=== PATIENT | female | born 1975 | race American Indian/Alaskan Native ===

== ENCOUNTER 2018-07-23 21:01 | Inpatient (IN) | payer OTHER ==
[2018-07-23 21:04] VITALS: BMI 29.0
[2018-07-23 21:15] LABS: BASO # 0.1 K/uL (0.0-0.2); BASO % 0.8 % (0.0-2.0); EOS # 0.1 K/uL (0.0-0.7); HEMOGLOBIN 12.4 g/dL (11.0-16.0); LYMPH # 3.8 K/uL (1.0-4.3); LYMPH % 39.7 % (20.0-40.0); MEAN CELL VOLUME 76.8 fL (81.0-99.0); MEAN CORPUSCULAR HEMOGLOBIN 24.8 pg (27.0-31.0); MEAN CORPUSCULAR HGB CONC 32.3 g/dL (33.0-37.0); MONO # 1.2 K/uL (0.0-0.8); MONO % 12.6 % (0.0-10.0); NEUT # 4.3 K/uL (1.8-7.0); NEUT % 45.9 % (50.0-75.0); NRBC % 0.1 % (0.0-2.0); RED CELL DISTRIBUTION WIDTH 15.6 % (11.5-14.5); WHITE BLOOD COUNT 9.5 K/uL (4.8-10.8)
[2018-07-23 21:21] LABS: INR 1.1; PROTHROMBIN TIME 11.8 SECONDS (9.7-12.2)
[2018-07-23] MEDS ORDERED: levETIRAcetam 1,000 MG in Sodium Chloride 0.9% 100 ML IVPB STA (21:24)
[2018-07-23 21:30] LABS: ALB/GLOB RATIO 1.2 (1.0-2.1); ALBUMIN 4.1 g/dL (3.5-5.0); ALT/SGPT 28 U/L (9-52); AST/SGOT 19 U/L (14-36); BLOOD UREA NITROGEN 5 mg/dL (7-17); CALCIUM 9.7 mg/dl (8.6-10.4); GFR NON-AFRICAN AMERICAN > 60; HDL CHOLESTEROL 28 mg/dL (30-70); LIPASE 150 U/L (23-300)
[2018-07-23] MEDS ORDERED: Dexamethasone 4 mg/1 ml IVP SCH (21:30)
[2018-07-23] MEDS ORDERED: levETIRAcetam 500 MG in Sodium Chloride 0.9% 100 ML IVPB SCH (21:30)
[2018-07-23] MEDS ORDERED: Dexamethasone 4 mg/1 ml ONE (21:35)
[2018-07-23 21:40] LABS: LDL CHOLESTEROL 143 mg/dL (0-129)
[2018-07-23 22:06] LABS: HCG,QUALITATIVE URINE NEGATIVE (NEGATIVE)
[2018-07-23 22:07] LABS: BARBITURATES, UR NEGATIVE (NEGATIVE); BENZODIAZEPINES, UR NEGATIVE (NEGATIVE); OPIATES, UR NEGATIVE (NEGATIVE); PHENCYCLIDINE, UR NEGATIVE (NEGATIVE)
--- NOTE | 2018-07-23 22:16 | CP.PCM.CON ---
History of Present Illness - History of Present Illness History of Present Illness: 42yo F. No PMHx. Patient was taking hormonal therapy for egg retrieval for the past year, but stopped 3 months agol. p/w one and half weeks of headache, which has progressed to vomiting starting today. Came to ED and on head CT 2cm right cerebellar bleed noted. Review of Systems - Review of Systems All systems: reviewed and no additional remarkable complaints except - Constitutional Constitutional: Headache - Gastrointestinal Gastrointestinal: Vomiting Past Patient History - Past Medical History & Family History Pertinent Family History: Mother has HTN. - Past Social History Smoking Status: Never Smoked - PSYCHIATRIC Hx Substance Use: No Meds Allergies/Adverse Reactions: Allergies Allergy/AdvReac Type Severity Reaction Status Date / Time No Known Allergies Allergy Unverified 07/23/18 21:03 - Medications Medications: Current Medications Dexamethasone (Decadron Inj) 4 mg IVP Q6H SANYA Last Admin: 07/23/18 21:22 Dose: 4 mg Physical Exam - Constitutional Appears: Well - Head Exam Head Exam: ATRAUMATIC, NORMAL INSPECTION, NORMOCEPHALIC - Eye Exam Eye Exam: EOMI, Normal appearance, PERRL Pupil Exam: NORMAL ACCOMODATION, PERRL - ENT Exam ENT Exam: Mucous Membranes Moist, Normal Exam - Neck Exam Neck exam: Positive for: Normal Inspection - Respiratory Exam Respiratory Exam: Clear to Auscultation Bilateral, NORMAL BREATHING PATTERN - Cardiovascular Exam Cardiovascular Exam: REGULAR RHYTHM - GI/Abdominal Exam GI & Abdominal Exam: Normal Bowel Sounds, Soft. absent: Tenderness - Extremities Exam Extremities exam: Positive for: normal inspection - Neurological Exam Neurological exam: Alert, CN II-XII Intact, Oriented x3 - Expanded Neurological Exam Expanded Neurological exam: Ataxia Patient oriented to: person, place, time Ataxia: Yes Cerebellar Function: Finger to Nose: Abnormal Right (unsteady and patient had difficulty) Sensory exam: Lower Extremity 2 Point Discrimination: Normal, Upper Extremity 2 Point Discrimination: Normal Neuro motor strength exam: Left Upper Extremity: 5, Right Upper Extremity: 5, Left Lower Extremity: 5, Right Lower Extremity: 5 Results - Vital Signs Recent Vital Signs: Last Vital Signs Temp 98.3 F 07/23/18 21:05 Pulse 84 07/23/18 22:00 Resp 16 07/23/18 22:00 BP 125/66 07/23/18 22:00 Pulse Ox 98 07/23/18 22:00 - Labs Result Diagrams: 07/23/18 21:12 07/23/18 21:12 Labs: Laboratory Results - last 24 hr 07/23/18 07/23/18 07/23/18 21:12 21:12 21:12 WBC 9.5 RBC 5.00 Hgb 12.4 Hct 38.4 MCV 76.8 L MCH 24.8 L MCHC 32.3 L RDW 15.6 H Plt Count 285 MPV 8.0 Neut % (Auto) 45.9 L Lymph % (Auto) 39.7 [place] % (Auto) 12.6 H Eos % (Auto) 1.0 Baso % (Auto) 0.8 Neut # (Auto) 4.3 Lymph # (Auto) 3.8 [place] # (Auto) 1.2 H Eos # (Auto) 0.1 Baso # (Auto) 0.1 PT 11.8 INR 1.1 APTT 24 Sodium 143 Potassium 3.0 L Chloride 108 H Carbon Dioxide 18 L Anion Gap 20 BUN 5 L Creatinine 0.9 Est GFR ( Amer) > 60 Est GFR (Non-Af Amer) > 60 Random Glucose 127 H Hemoglobin A1c Calcium 9.7 Total Bilirubin 0.3 AST 19 ALT 28 Alkaline Phosphatase 57 Troponin I < 0.0120 Total Protein 7.5 Albumin 4.1 Globulin 3.5 Albumin/Globulin Ratio 1.2 Triglycerides 137 Cholesterol 196 LDL Cholesterol Direct 143 H HDL Cholesterol 28 L Lipase 150 07/23/18 21:12 WBC RBC Hgb Hct MCV MCH MCHC RDW Plt Count MPV Neut % (Auto) Lymph % (Auto) [place] % (Auto) Eos % (Auto) Baso % (Auto) Neut # (Auto) Lymph # (Auto) [place] # (Auto) Eos # (Auto) Baso # (Auto) PT INR APTT Sodium Potassium Chloride Carbon Dioxide Anion Gap BUN Creatinine Est GFR ( Amer) Est GFR (Non-Af Amer) Random Glucose Hemoglobin A1c 5.7 Calcium Total Bilirubin AST ALT Alkaline Phosphatase Troponin I Total Protein Albumin Globulin Albumin/Globulin Ratio Triglycerides Cholesterol LDL Cholesterol Direct HDL Cholesterol Lipase Assessment & Plan (1) Intracranial hemorrhage Assessment and Plan: 42yp F. No sig PMHx, p/w right cerebellar ICH. Neuro: right cerebellar ICH, repeat head CT in am. Eventually will need MRI to assess for underlying AVM/aneurysm/mass, once blood resorbs. Neurosurgery consulted - Dr. Delgadillo. Pulm: no acute issues, breathing spontaneously on room air. CV: hemodynamically stable, will monitor for HTN, maintain SBP<140. arrythmia on tele will obtain EKG, possibly hypokalemia related. Hem: ICH, no coagulopathy Renal: hypokalemia from vomiting, will supplement. Will monitor urine output. maintenance fluid 1/2NS+75SB+40KCL@75 Endo: no acute issues. hormone therapy stopped 3 months ago. GI: NPO, s/s eval in morning. ID: no acute issues DVT proph - SCD's, no a/c with current bleed GI proph - protonix IV Code status - full code Critical Care Time spent 35 minutes The documented time is cumulative and includes review of patient data/exams/labs/chart review and examination of the patient on rounds and throughout the day; time is exclusive of any procedures or teaching time. Status: Acute
--- NOTE | 2018-07-23 22:20 | C.PDOC ---
History Of Present Illness 42 y/o F c no PMHx p/w headache x 1.5 weeks. states patient has been having headaches for about 1 and a half weeks. States patient typically does not have headaches. Patient has been going to work, coming home, sleeping most of the time, and only waking to go back to work. Today, patient vomiting in bed and drowsy, causing to bring patient to ED. Made appointment with neurology but appointment has not occurred yet. Denies fever, nuchal ridigity, trauma. Full HPI/ROS unobtainable due to patient's clinical condition and acuity of case. Time Seen by Provider: 07/23/18 21:03 Chief Complaint (Nursing): Altered Mental Status Past Medical History Vital Signs: Last Vital Signs Temp 98.3 F 07/23/18 21:05 Pulse 84 07/23/18 22:00 Resp 16 07/23/18 22:00 BP 125/66 07/23/18 22:00 Pulse Ox 98 07/23/18 22:00 Family History: States: No Known Family Hx - Social History Hx Alcohol Use: No Hx Substance Use: No - Immunization History Hx Tetanus Toxoid Vaccination: No Hx Influenza Vaccination: No Hx Pneumococcal Vaccination: No Review Of Systems Review Of Systems: ROS cannot be obtained secondary to pt's inabilty to answer questions. Physical Exam - Physical Exam Additional Physical Exam Comments: Gen: Drowsy, speaking full sentences. Head: NC/AT Eyes: PERRL. EOMI. ENT: MMM Neck: Supple Chest: No tenderness CV: Borderline tachycardia Resp: CTA b/l Abd: Soft, NT Back: No CVA tenderness Extremities: No edema Skin: No rash, diaphoretic Neuro: Awake but drowsy. Moves all extremities. No facial droop. Sensation to light touch intact bilaterally. ED Course And Treatment - Laboratory Results Result Diagrams: 07/23/18 21:12 07/23/18 21:12 ECG: Interpreted By Me, Viewed By Me ECG Rhythm: Atrial Fibrillation ECG Interpretation: Normal Interpretation Of ECG: No ST elevation Rate From EC O2 Sat by Pulse Oximetry: 98 Critical Care Time - Critical Care Note Total Time (in mins): 60 Comments: Patient required my immediate attention upon arrival due to life threatening co ndition, frequent reassessments and mutliple specialty consultations. Documented critical care: time excludes all time spent performing seperately billable procedures. NIHSS Stroke Scale - Date/Time Evaluation Performed Date Performed: 07/23/18 Time Performed: 21:00 When Was NIHSS Performed: Baseline - How Severe is the Stroke Level of Consciousness: 1=Drowsy LOC to Questions: 0=Both comments correct LOC to commands: 0=Obeys both correctly Best Gaze: 0=Normal Visual: 0=No visual loss Facial: 0=Normal Motor Arm - Left: 0=No drift Motor Arm - Right: 0=No drift Motor Leg - Left: 0=No drift Motor Leg - Right: 0=No drift Limb Ataxia: 0=Absent Sensory: 0=Normal Best Language: 0=No aphasia Dysarthia: 0=Normal articulation Extinction & Inattention (Neglect): 0=Normal, no object Score: 1 Severity Of Stroke: 1-4 = Minor Stroke Medical Decision Making Medical Decision Making: CODE STROKE activated. CT IMPRESSION: Subacute right cerebellar hemorrhage measuring approximately 2cm. Focal bleed is also noted in the cerebellar vermis. There is an apparent extension into posterior subdural space and 4th ventricle. Keppra 1000mg administered and fentanyl for pain. Blood pressure 120/80-85. Head of bed [address] Delgadillo who viewed CT imaging. Recommends decadron 4mg Q6 and repeat CT at 7am and states will obtain MRI with contrast. Dr. Erickson was CODE STROKE consult. Dr. Harding accepts patient to his service. Dr. Santos accepts patient to ICU. Patient found to be in rate controlled afib, anticoagulation contraindicated at this time. Disposition - Disposition Disposition: HOSPITALIZED Disposition Time: 21:37 Condition: CRITICAL - POA Present On Arrival: None Core Measure Indicators: Code Stroke - Clinical Impression Clinical Impression: Intracranial hemorrhage
[2018-07-23 22:30] LABS: URINE BILIRUBIN SMALL (NEGATIVE); URINE BLOOD TRACE (NEGATIVE); URINE CLARITY Hazy (Clear); URINE COLOR AMBER (YELLOW); URINE GLUCOSE (UA) NEGATIVE (Normal)
[2018-07-23 22:31] LABS: SQUAMOUS EPITHIAL 4 /hpf (0-5); URINE BACTERIA OCC (<OCC); URINE LEUKOCYTE ESTERASE NEGATIVE Leu/uL (Negative); URINE PROTEIN 100 mg/dL (NEGATIVE); URINE UROBILINOGEN 0.2 mg/dL (0.2-1.0)
--- NOTE | 2018-07-23 22:40 | CP.PCM.HP ---
Past Patient History - Past Social History Smoking Status: Never Smoked - PSYCHIATRIC Hx Substance Use: No Meds Allergies/Adverse Reactions: Allergies Allergy/AdvReac Type Severity Reaction Status Date / Time No Known Allergies Allergy Unverified 07/23/18 21:03 Physical Exam - Constitutional Appears: Well - Head Exam Head Exam: ATRAUMATIC, NORMAL INSPECTION, NORMOCEPHALIC - Eye Exam Eye Exam: EOMI, Normal appearance, PERRL Pupil Exam: NORMAL ACCOMODATION, PERRL - ENT Exam ENT Exam: Mucous Membranes Moist, Normal Exam - Neck Exam Neck exam: Positive for: Normal Inspection - Respiratory Exam Respiratory Exam: Decreased Breath Sounds - Cardiovascular Exam Cardiovascular Exam: REGULAR RHYTHM, +S1, +S2 - GI/Abdominal Exam GI & Abdominal Exam: Diminished Bowel Sounds, Soft - Rectal Exam Rectal Exam: Deferred Results - Vital Signs Recent Vital Signs: Last Vital Signs Temp 98.3 F 07/23/18 22:21 Pulse 78 07/23/18 22:21 Resp 18 07/23/18 22:21 BP 112/69 07/23/18 22:21 Pulse Ox 98 07/23/18 22:37 - Labs Result Diagrams: 07/23/18 21:12 07/23/18 21:12 Labs: Laboratory Results - last 24 hr 07/23/18 07/23/18 07/23/18 21:12 21:12 21:12 WBC 9.5 RBC 5.00 Hgb 12.4 Hct 38.4 MCV 76.8 L MCH 24.8 L MCHC 32.3 L RDW 15.6 H Plt Count 285 MPV 8.0 Neut % (Auto) 45.9 L Lymph % (Auto) 39.7 [place] % (Auto) 12.6 H Eos % (Auto) 1.0 Baso % (Auto) 0.8 Neut # (Auto) 4.3 Lymph # (Auto) 3.8 [place] # (Auto) 1.2 H Eos # (Auto) 0.1 Baso # (Auto) 0.1 PT 11.8 INR 1.1 APTT 24 Sodium 143 Potassium 3.0 L Chloride 108 H Carbon Dioxide 18 L Anion Gap 20 BUN 5 L Creatinine 0.9 Est GFR ( Amer) > 60 Est GFR (Non-Af Amer) > 60 Random Glucose 127 H Hemoglobin A1c Calcium 9.7 Total Bilirubin 0.3 AST 19 ALT 28 Alkaline Phosphatase 57 Troponin I < 0.0120 Total Protein 7.5 Albumin 4.1 Globulin 3.5 Albumin/Globulin Ratio 1.2 Triglycerides 137 Cholesterol 196 LDL Cholesterol Direct 143 H HDL Cholesterol 28 L Lipase 150 Urine Color Urine Clarity Urine pH Ur Specific [place] Urine Protein Urine Glucose (UA) Urine Ketones Urine Blood Urine Nitrate Urine Bilirubin Urine Urobilinogen Ur Leukocyte Esterase Urine RBC (Auto) Ur Squamous Epith Cells Urine Bacteria Urine HCG, Qual Urine Opiates Screen Urine Methadone Screen Ur Barbiturates Screen Ur Phencyclidine Scrn Ur Amphetamines Screen U Benzodiazepines Scrn U Oth Cocaine Metabols U Cannabinoids Screen Blood Type Antibody Screen 07/23/18 07/23/18 07/23/18 21:12 21:32 21:39 WBC RBC Hgb Hct MCV MCH MCHC RDW Plt Count MPV Neut % (Auto) Lymph % (Auto) [place] % (Auto) Eos % (Auto) Baso % (Auto) Neut # (Auto) Lymph # (Auto) [place] # (Auto) Eos # (Auto) Baso # (Auto) PT INR APTT Sodium Potassium Chloride Carbon Dioxide Anion Gap BUN Creatinine Est GFR ( Amer) Est GFR (Non-Af Amer) Random Glucose Hemoglobin A1c 5.7 Calcium Total Bilirubin AST ALT Alkaline Phosphatase Troponin I Total Protein Albumin Globulin Albumin/Globulin Ratio Triglycerides Cholesterol LDL Cholesterol Direct HDL Cholesterol Lipase Urine Color [place] Urine Clarity Hazy Urine pH 6.0 Ur Specific [place] 1.030 Urine Protein 100 Urine Glucose (UA) Negative Urine Ketones Negative Urine Blood Trace Urine Nitrate Negative Urine Bilirubin Small Urine Urobilinogen 0.2 Ur Leukocyte Esterase Negative Urine RBC (Auto) 5 H Ur Squamous Epith Cells 4 Urine Bacteria Occ H Urine HCG, Qual Negative Urine Opiates Screen Urine Methadone Screen Ur Barbiturates Screen Ur Phencyclidine Scrn Ur Amphetamines Screen U Benzodiazepines Scrn U Oth Cocaine Metabols U Cannabinoids Screen Blood Type A POSITIVE Antibody Screen Negative 07/23/18 21:39 WBC RBC Hgb Hct MCV MCH MCHC RDW Plt Count MPV Neut % (Auto) Lymph % (Auto) [place] % (Auto) Eos % (Auto) Baso % (Auto) Neut # (Auto) Lymph # (Auto) [place] # (Auto) Eos # (Auto) Baso # (Auto) PT INR APTT Sodium Potassium Chloride Carbon Dioxide Anion Gap BUN Creatinine Est GFR ( Amer) Est GFR (Non-Af Amer) Random Glucose Hemoglobin A1c Calcium Total Bilirubin AST ALT Alkaline Phosphatase Troponin I Total Protein Albumin Globulin Albumin/Globulin Ratio Triglycerides Cholesterol LDL Cholesterol Direct HDL Cholesterol Lipase Urine Color Urine Clarity Urine pH Ur Specific [place] Urine Protein Urine Glucose (UA) Urine Ketones Urine Blood Urine Nitrate Urine Bilirubin Urine Urobilinogen Ur Leukocyte Esterase Urine RBC (Auto) Ur Squamous Epith Cells Urine Bacteria Urine HCG, Qual Urine Opiates Screen Negative Urine Methadone Screen Negative Ur Barbiturates Screen Negative Ur Phencyclidine Scrn Negative Ur Amphetamines Screen Negative U Benzodiazepines Scrn Negative U Oth Cocaine Metabols Negative U Cannabinoids Screen Negative Blood Type Antibody Screen
[2018-07-24 06:20] LABS: HEMOGLOBIN 12.4 g/dL (11.0-16.0); MEAN CELL VOLUME 77.3 fL (81.0-99.0); MEAN CORPUSCULAR HEMOGLOBIN 25.2 pg (27.0-31.0); MEAN CORPUSCULAR HGB CONC 32.6 g/dL (33.0-37.0); MEAN PLATELET VOLUME 8.4 fL (7.2-11.7); RBC 4.91 Mil/uL (3.80-5.20); RED CELL DISTRIBUTION WIDTH 16.4 % (11.5-14.5); WHITE BLOOD COUNT 11.7 K/uL (4.8-10.8)
[2018-07-24 06:27] LABS: HDL CHOLESTEROL 34 mg/dL (30-70)
[2018-07-24 06:38] LABS: LDL CHOLESTEROL 162 mg/dL (0-129)
[2018-07-24 06:42] LABS: B-TYPE NATRIURETIC PEPTIDE 264 pg/mL (0-450); CK-MB 1.54 ng/mL (0.0-3.38)
[2018-07-24 07:00] LABS: T3 1.75 nmol/L (1.49-2.60)
[2018-07-24 07:53] LABS: T4 11.8 ug/dL (5.5-11.0)
--- NOTE | 2018-07-24 08:57 | RAD ---
Date of service: 07/23/2018 HISTORY: Code Stroke COMPARISON: No prior. FINDINGS: LUNGS: No consolidation. Visualization of the left lung base is limited-probably technical PLEURA: No significant pleural effusion identified, no pneumothorax apparent. CARDIOVASCULAR: Probable mild cardiomegaly-even allowing for projection. Mild pulmonary venous congestion-possible. OSSEOUS STRUCTURES: No significant abnormalities. VISUALIZED UPPER ABDOMEN: Normal. OTHER FINDINGS: None. IMPRESSION: Probable mild cardiomegaly-even allowing for projection. Mild pulmonary venous congestion-possible.
[2018-07-24 09:07] LABS: ALB/GLOB RATIO 1.1 (1.0-2.1); ALBUMIN 4.1 g/dL (3.5-5.0); ALT/SGPT 31 U/L (9-52); AST/SGOT 31 U/L (14-36); BLOOD UREA NITROGEN 6 mg/dL (7-17); CALCIUM 9.4 mg/dl (8.6-10.4); GFR NON-AFRICAN AMERICAN > 60
--- NOTE | 2018-07-24 10:19 | CP.PCM.CON ---
History of Present Illness - History of Present Illness History of Present Illness: PGY1 Neurology Consult Note for Dr. Erickson This is a 42-year-old patient with no past medical history who was consulted by Dr. Santos for right cerebellar ICH. Of note, patient came in with a complaint of new-onset headache that began 1 week ago. Patient's , who was at bedside at the time, stated that the patient was complaining of nagging headache that worsened over the past 2 days with associated nausea, vomiting, and drowsiness. Patient's stated that he was compelled to bring the patient into the ED when he realized that the patient was asking him the same questions over and over again, and that she was not responding at her "normal pace." Patient reports history of hormonal therapy for egg retrieval, which lasted about 1 year. Patient was off therapy for 2 months, and then restarted on OTC control for the past 2 months. While in the ED, CT of head without contrast was obtained and revealed mild intraparenchymal hemorrhage is identified at the right cerebral hemisphere, the vermis and a minimal portion of the medial left cerebellar hemisphere as well, questionable venous sinus thrombosis at the posterior inferior superior sagittal sinus segment, internal cerebral veins, vein of cheng and possibly the straight sinus. Patient was admitted to ICU for close monitoring. Today, the patient reports similar headache as the day prior. Patient localizes her pain to posterior head. Patient remains alert and oriented to person, place, and time, however she is still drowsy. GCS =15. Review of Systems - Review of Systems All systems: reviewed and no additional remarkable complaints except - Constitutional Constitutional: As Per HPI - EENT Eyes: As Per HPI - Cardiovascular Cardiovascular: As Per HPI - Reproductive: Female Reproductive:Female: As Per HPI - Menstruation Menstruation: As Per HPI - Musculoskeletal Musculoskeletal: As Per HPI - Neurological Neurological: As Per HPI Past Patient History - Past Medical History & Family History Past Medical History?: No - Past Social History Smoking Status: Never Smoked - MUSCULOSKELETAL/RHEUMATOLOGICAL Hx Falls: No - PSYCHIATRIC Hx Substance Use: No - ANESTHESIA Hx Anesthesia: No Hx Anesthesia Reactions: No Hx Malignant Hyperthermia: No Has any member of the family had a problem w/ anesthesia?: No Meds Allergies/Adverse Reactions: Allergies Allergy/AdvReac Type Severity Reaction Status Date / Time No Known Allergies Allergy Unverified 07/23/18 21:03 - Medications Medications: Current Medications Sodium Bicarbonate 75 meq/Potassium Chloride 40 meq/Sodium Chloride 1,095 mls @ 75 mls/hr IV .[id number] [facility] Last Admin: 07/23/18 23:39 Dose: 75 mls/hr Pantoprazole Sodium (Protonix Inj) 40 mg IVP DAILY [facility] Sodium Chloride (Hypertonic Saline 3%) 250 ml IV ONCE ONE Stop: 07/24/18 10:06 Physical Exam - Constitutional Appears: Non-toxic, No Acute Distress - Head Exam Head Exam: ATRAUMATIC, NORMAL INSPECTION, NORMOCEPHALIC - Eye Exam Eye Exam: EOMI - Extremities Exam Additional comments: Left lower extremity is +1 nonpitting edema Left upper extremity is +1 nonpitting edema Lower extremities are warm to touch bilaterally. No bruising, no tenderness to palpation. Pedal pulses palpable and equal. - Neurological Exam Additional comments: pupils are dilated bilaterally. Reactive to light bilaterally. - Expanded Neurological Exam Expanded Patient oriented to: person, place, time Speech: Fluid Speech Cranial nerves: EOM's Intact: Normal, Facial Palsey w/Forehead Movement: Normal, Facial Palsey w/o Forehead Movement: Normal, Facial Sensation: Normal, Gag Reflex: Normal, Nystagmus: Normal, Tongue Deviation: Normal Cerebellar Function: Finger to Nose: Normal Upper motor neuron: Pronator Drift: Normal (Patient felt weak > 8 seconds) Neuro motor strength exam: Left Upper Extremity: 5, Right Upper Extremity: 5, Left Lower Extremity: 5, Right Lower Extremity: 5 DTR: Patellar Left: 2+ (Left more brisk than right. ), Patellar Right: 2+ - Psychiatric Exam Psychiatric exam: Normal Affect, Normal Mood Results - Vital Signs Recent Vital Signs: Last Vital Signs Temp 98.4 F 07/24/18 08:00 Pulse 81 07/24/18 09:20 Resp 28 H 07/24/18 09:20 BP 111/77 07/24/18 08:40 Pulse Ox 94 L 07/24/18 09:20 - Labs Result Diagrams: 07/24/18 13:29 07/24/18 13:29 Labs: Laboratory Results - last 24 hr 07/23/18 07/23/18 07/23/18 21:12 21:12 21:12 WBC 9.5 RBC 5.00 Hgb 12.4 Hct 38.4 MCV 76.8 L MCH 24.8 L MCHC 32.3 L RDW 15.6 H Plt Count 285 MPV 8.0 Neut % (Auto) 45.9 L Lymph % (Auto) 39.7 [place] % (Auto) 12.6 H Eos % (Auto) 1.0 Baso % (Auto) 0.8 Neut # (Auto) 4.3 Lymph # (Auto) 3.8 [place] # (Auto) 1.2 H Eos # (Auto) 0.1 Baso # (Auto) 0.1 ESR PT 11.8 INR 1.1 APTT 24 Sodium 143 Potassium 3.0 L Chloride 108 H Carbon Dioxide 18 L Anion Gap 20 BUN 5 L Creatinine 0.9 Est GFR ( Amer) > 60 Est GFR (Non-Af Amer) > 60 Random Glucose 127 H Hemoglobin A1c Calcium 9.7 Phosphorus Magnesium Total Bilirubin 0.3 AST 19 ALT 28 Alkaline Phosphatase 57 Total Creatine Kinase CK-MB (Mass) Troponin I < 0.0120 C-React Prot High Sens NT-Pro-B Natriuret Pep Total Protein 7.5 Albumin 4.1 Globulin 3.5 Albumin/Globulin Ratio 1.2 Triglycerides 137 Cholesterol 196 LDL Cholesterol Direct 143 H HDL Cholesterol 28 L Lipase 150 Vitamin B12 Thyroxine (T4) Total T3 TSH 3rd Generation Urine Color Urine Clarity Urine pH Ur Specific [place] Urine Protein Urine Glucose (UA) Urine Ketones Urine Blood Urine Nitrate Urine Bilirubin Urine Urobilinogen Ur Leukocyte Esterase Urine RBC (Auto) Ur Squamous Epith Cells Urine Bacteria Urine HCG, Qual Urine Opiates Screen Urine Methadone Screen Ur Barbiturates Screen Ur Phencyclidine Scrn Ur Amphetamines Screen U Benzodiazepines Scrn U Oth Cocaine Metabols U Cannabinoids Screen Blood Type Antibody Screen 07/23/18 07/23/18 07/23/18 21:12 21:32 21:39 WBC RBC Hgb Hct MCV MCH MCHC RDW Plt Count MPV Neut % (Auto) Lymph % (Auto) [place] % (Auto) Eos % (Auto) Baso % (Auto) Neut # (Auto) Lymph # (Auto) [place] # (Auto) Eos # (Auto) Baso # (Auto) ESR PT INR APTT Sodium Potassium Chloride Carbon Dioxide Anion Gap BUN Creatinine Est GFR ( Amer) Est GFR (Non-Af Amer) Random Glucose Hemoglobin A1c 5.7 Calcium Phosphorus Magnesium Total Bilirubin AST ALT Alkaline Phosphatase Total Creatine Kinase CK-MB (Mass) Troponin I C-React Prot High Sens NT-Pro-B Natriuret Pep Total Protein Albumin Globulin Albumin/Globulin Ratio Triglycerides Cholesterol LDL Cholesterol Direct HDL Cholesterol Lipase Vitamin B12 Thyroxine (T4) Total T3 TSH 3rd Generation Urine Color [place] Urine Clarity Hazy Urine pH 6.0 Ur Specific [place] 1.030 Urine Protein 100 Urine Glucose (UA) Negative Urine Ketones Negative Urine Blood Trace Urine Nitrate Negative Urine Bilirubin Small Urine Urobilinogen 0.2 Ur Leukocyte Esterase Negative Urine RBC (Auto) 5 H Ur Squamous Epith Cells 4 Urine Bacteria Occ H Urine HCG, Qual Negative Urine Opiates Screen Urine Methadone Screen Ur Barbiturates Screen Ur Phencyclidine Scrn Ur Amphetamines Screen U Benzodiazepines Scrn U Oth Cocaine Metabols U Cannabinoids Screen Blood Type A POSITIVE Antibody Screen Negative 07/23/18 07/24/18 07/24/18 21:39 06:11 06:11 WBC 11.7 H RBC 4.91 Hgb 12.4 Hct 37.9 MCV 77.3 L MCH 25.2 L MCHC 32.6 L RDW 16.4 H Plt Count 216 MPV 8.4 Neut % (Auto) Lymph % (Auto) [place] % (Auto) Eos % (Auto) Baso % (Auto) Neut # (Auto) Lymph # (Auto) [place] # (Auto) Eos # (Auto) Baso # (Auto) ESR 23 H PT INR APTT Sodium 142 Potassium 5.8 H Chloride 108 H Carbon Dioxide 16 L Anion Gap 23 H BUN 6 L Creatinine 0.8 Est GFR ( Amer) > 60 Est GFR (Non-Af Amer) > 60 Random Glucose 144 H Hemoglobin A1c Calcium 9.4 Phosphorus 2.8 Magnesium 1.7 Total Bilirubin 0.5 AST 31 ALT 31 Alkaline Phosphatase 58 Total Creatine Kinase 213 H CK-MB (Mass) 1.54 Troponin I < 0.0120 C-React Prot High Sens NT-Pro-B Natriuret Pep 264 Total Protein 7.7 Albumin 4.1 Globulin 3.6 Albumin/Globulin Ratio 1.1 Triglycerides 55 D Cholesterol 194 LDL Cholesterol Direct 162 H HDL Cholesterol 34 Lipase Vitamin B12 537 Thyroxine (T4) 11.8 H Total T3 1.75 TSH 3rd Generation 0.41 L Urine Color Urine Clarity Urine pH Ur Specific [place] Urine Protein Urine Glucose (UA) Urine Ketones Urine Blood Urine Nitrate Urine Bilirubin Urine Urobilinogen Ur Leukocyte Esterase Urine RBC (Auto) Ur Squamous Epith Cells Urine Bacteria Urine HCG, Qual Urine Opiates Screen Negative Urine Methadone Screen Negative Ur Barbiturates Screen Negative Ur Phencyclidine Scrn Negative Ur Amphetamines Screen Negative U Benzodiazepines Scrn Negative U Oth Cocaine Metabols Negative U Cannabinoids Screen Negative Blood Type Antibody Screen 07/24/18 06:11 WBC RBC Hgb Hct MCV MCH MCHC RDW Plt Count MPV Neut % (Auto) Lymph % (Auto) [place] % (Auto) Eos % (Auto) Baso % (Auto) Neut # (Auto) Lymph # (Auto) [place] # (Auto) Eos # (Auto) Baso # (Auto) ESR PT INR APTT Sodium Potassium Chloride Carbon Dioxide Anion Gap BUN Creatinine Est GFR ( Amer) Est GFR (Non-Af Amer) Random Glucose Hemoglobin A1c Calcium Phosphorus Magnesium Total Bilirubin AST ALT Alkaline Phosphatase Total Creatine Kinase CK-MB (Mass) Troponin I C-React Prot High Sens 5.92 H NT-Pro-B Natriuret Pep Total Protein Albumin Globulin Albumin/Globulin Ratio Triglycerides Cholesterol LDL Cholesterol Direct HDL Cholesterol Lipase Vitamin B12 Thyroxine (T4) Total T3 TSH 3rd Generation Urine Color Urine Clarity Urine pH Ur Specific [place] Urine Protein Urine Glucose (UA) Urine Ketones Urine Blood Urine Nitrate Urine Bilirubin Urine Urobilinogen Ur Leukocyte Esterase Urine RBC (Auto) Ur Squamous Epith Cells Urine Bacteria Urine HCG, Qual Urine Opiates Screen Urine Methadone Screen Ur Barbiturates Screen Ur Phencyclidine Scrn Ur Amphetamines Screen U Benzodiazepines Scrn U Oth Cocaine Metabols U Cannabinoids Screen Blood Type Antibody Screen Assessment & Plan - Assessment and Plan (Free Text) Assessment: This is a 42-year-old patient with no past medical history who was consulted by Dr. Santos for right cerebellar ICH. Of note, patient came in with a complaint of new-onset headache that began [address] of head without contrast was obtained and revealed mild intraparenchymal hemorrhage is identified at the right cerebral hemisphere, the vermis and a minimal portion of the medial left cerebellar hemisphere as well, questionable venous sinus thrombosis at the posterior inferior superior sagittal sinus segment, internal cerebral veins, vein of cheng and possibly the straight sinus. Patient was admitted to ICU for close monitoring. 1. Intracranial hemorrhage - 3% NS 250ml bolus administered - 3% NS @60cc/hour - 1L NS bolus given once - GCS =15 2. Venous Sinus Thrombosis - CTA Head official report: * Definite Venous sinus thrombosis at superior sagittal sinus segment from its mid vertex segment posteriorly at to the level of the torcular herophili, likely thrombosis of bilateral internal cerebral veins, vein of Cheng and straight sinus and possibly right transferse sinus - Repeat head CT this AM showed mild increase in cerebellar hemorrhage, mass- effect now encroaching brain stem, possible arachnoid cyst - Followup venous dopplers to r/o DVT - Neurochecks Q1H - Heparin 4320 units IVP once - Neurosurgery consulted Dr. Delgadillo was consulted Patient was hemodynamically stable. Patient subsequently transferred to [facility] tertiary medical care. All consultants on case agreed. Please do not hesitate to call back with any new developments, data updates or q uestions. Thank you for the opportunity to participate in the care of this patient. Patient seen and case discussed in detail with Dr. Georgina Batres PGY1
--- NOTE | 2018-07-24 10:25 | CT ---
Date of service: 07/24/2018 PROCEDURE: CT HEAD WITHOUT CONTRAST. HISTORY: ICH evaluation COMPARISON: Noncontrast head CT 07/23/2018. TECHNIQUE: Axial computed tomography images were obtained through the head/brain without intravenous contrast. Radiation dose: Total exam DLP = 1174.05 mGy-cm. This CT exam was performed using one or more of the following dose reduction techniques: Automated exposure control, adjustment of the mA and/or kV according to patient size, and/or use of iterative reconstruction technique. FINDINGS: HEMORRHAGE: Hemorrhage in local edema appears slightly increased at the level of the vermis posteriorly and likely the right cerebellar hemisphere as well. Fourth ventricle is diminished involving indicating significant mass effect the bilateral lateral ventricles slightly increased in size. Borderline increase in volume of the 3rd ventricle. Pattern reflects early hydrocephalus. Basilar cisterns are diminished in volume indicating cerebellar encroachment at the brainstem. There are no suspicious cerebral findings intrinsically identified at this time. However, hyperdensity at the posterior segment of the superior sagittal sinus which may indicate sinus thrombosis. Further, internal cerebral veins also appears somewhat more dense than usual and may indicate thrombosis; this pattern is not excluded at the vein of Cheng and at least the proximal straight sinus. This may account for the hemorrhagic infarct at the cerebellum. Finally, the sella appears expanded by CSF lucency and measures 1.6 x 1.6 cm with no visible pituitary gland, indicating an empty sella. This may represent an arachnoid cyst given its expanded appearance. Note is made of falcine calcifications scattered infrequently along the falx. BRAIN: As above. VENTRICLES: Development of hydrocephalus is questioned as discussed above. CALVARIUM: Unremarkable. PARANASAL SINUSES: Unremarkable as visualized. No significant inflammatory changes. MASTOID AIR CELLS: Unremarkable as visualized. No inflammatory changes. OTHER FINDINGS: None. IMPRESSION: 1. Mild increase in cerebellar hemorrhage including the vermis and right cerebellar hemisphere. Mass-effect is now encroaches the brainstem with limited residual basilar cisterns remaining. No edema is appreciate specifically at the zenia or medulla at this time. Artifacts obscure lower posterior fossa. 2. No suspicious pattern for possible venous sinus thrombosis affecting the posterior segment of the superior sagittal sinus and potentially the internal cerebral veins bilaterally, vein of Cheng and straight sinus. Consider follow-up contrast head CT with delayed imaging. MR venography may be helpful depending on stage of thrombus. 3. Possible arachnoid cyst expanding the sella as discussed above. Empty sella otherwise. Findings and discussed with Dr. Delgadillo with written down and read back verification 07/24/2018 9:40 a.m..
--- NOTE | 2018-07-24 10:57 | CT ---
Date of service: 07/23/2018 PROCEDURE: CT HEAD WITHOUT CONTRAST. HISTORY: Code Stroke COMPARISON: None available. TECHNIQUE: Axial computed tomography images were obtained through the head/brain without intravenous contrast. Radiation dose: Total exam DLP = 1111.82 mGy-cm. This CT exam was performed using one or more of the following dose reduction techniques: Automated exposure control, adjustment of the mA and/or kV according to patient size, and/or use of iterative reconstruction technique. FINDINGS: HEMORRHAGE: Intraparenchymal hemorrhage is identified at the bilateral cerebral hemispheres but greater the right than left sides. Involvement of the vermis is also appreciated mildly. Limited local edema is appreciate related to central cerebellar hemorrhage. Fourth ventricle appears patent as well as the perimesencephalic and remaining basilar cisterns. No additional hemorrhage is appreciate throughout the remainder of the brain including the cerebrum which is normal in overall density. Good corticomedullary differentiation remains. Of note is questionable hyperdensity at the posterior inferior margins of the superior sagittal sinus, internal cerebral veins, vein of Cheng and potentially the straight sinus. Pattern may reflect sinus thrombosis which may explain unusual intraparenchymal hemorrhage. Infrequent fall seen calcifications are identified. No hydrocephalus identified at this time. BRAIN: Please see discussion above. VENTRICLES: Please see above. CALVARIUM: Unremarkable. PARANASAL SINUSES: Unremarkable as visualized. No significant inflammatory changes. MASTOID AIR CELLS: Unremarkable as visualized. No inflammatory changes. OTHER FINDINGS: None. IMPRESSION: 1. Mild intraparenchymal hemorrhage is identified at the right cerebral hemisphere, the vermis and a minimal portion of the medial left cerebellar hemisphere as well. Limited local edema is appreciated without effacing the 4th ventricle or the basilar cisterns at this time. Brainstem appears unremarkable in density. The remaining brain parenchyma appears normal. 2. Questionable venous sinus thrombosis at the posterior inferior superior sagittal sinus segment, internal cerebral veins, vein of Cheng and possibly the straight sinus. Consider follow-up head CT with contrast with delayed imaging. The final read and preliminary read are discordant around the possibility of sinus thrombosis. Impression 1. Was discussed with Dr. Henao with written down and read back verification by Dr. Villegas, who provided the preliminary report 07/23/2018 9:37 p.m.. I have discussed both all the findings noted above in this CT examination as well as the follow-up CT exam performed 07/24/2018 9:[address] Delgadillo subsequently. Please see separate report.
[2018-07-24] MEDS ORDERED: Sodium Chloride 3% 250 ML IV SCH (11:00)
[2018-07-24] MEDS ORDERED: Mannitol 12.5 gm/50 ml Inj IV ONE (11:00)
[2018-07-24] MEDS ORDERED: Iohexol 350mg/ml 100 ML ONE (11:07)
[2018-07-24] MEDS ORDERED: Iodixanol 320 mg/ml 150 ml Bottle IV ONE (11:17)
--- NOTE | 2018-07-24 11:36 | RAD ---
Date of service: 07/24/2018 HISTORY: s/p picc line placement COMPARISON: 07/23/2018 FINDINGS: LUNGS: Right PICC line retracts upon itself within the right SVC with the distal tip projecting in a cranial fashion. Re adjustment is recommended. Moderate venous congestion. Patchy left basilar airspace opacity. PLEURA: No significant pleural effusion identified, no pneumothorax apparent. CARDIOVASCULAR: No atherosclerotic calcification present Top normal heart size. OSSEOUS STRUCTURES: No significant abnormalities. VISUALIZED UPPER ABDOMEN: Normal. OTHER FINDINGS: None. IMPRESSION: Right PICC line retracts upon itself within the right SVC with the distal tip projecting in a cranial fashion. Re adjustment is recommended.
[2018-07-24] MEDS ORDERED: Heparin25000 units/250ml 1/2NS 25,000 UNITS/250 ML BAG IV PRN (11:55)
--- NOTE | 2018-07-24 11:55 | CP.CCUPN ---
Addendum entered and electronically signed by Norma Hess DO 07/24/18 16:07: Patient has been transferred to [facility]. Upon transfer, patient was hemodynamically stable without focal neurological deficits. Patient was transferred on heparin drip and ACLS. Original Note: <Norma Hess - Last Filed: 07/24/18 16:07> CCU Subjective - Physician Review Subjective (Free Text): Critical Care Progress Note Patient examined at bedside. Patient complains of headache, had multiple episodes of vomiting with nausea overnight. Appears lethargic, but is alert and oriented, responding to questioning and following commands. Patient to be transferred to [facility] for further management. Critical Care Time Spent (in minutes): 35 CCU Objective - Vital Signs / Intake & Output Vital Signs (Last 4 hours): Vital Signs Temp Pulse Resp BP Pulse Ox 07/24/18 09:20 81 28 H 94 L 07/24/18 09:11 116 H 12 07/24/18 08:50 114 H 21 100 07/24/18 08:40 125 H 19 111/77 100 07/24/18 08:30 118 H 21 100 07/24/18 08:20 129 H 26 H 100 07/24/18 08:10 118 H 24 100 07/24/18 08:00 98.4 F 125 H 25 H 100 Intake and Output (Last 8hrs): Intake & Output 07/23/18 07/24/18 07/24/18 22:59 06:59 14:59 Intake Total 760 265 Output Total 320 90 Balance 440 175 Weight 163 lb 160 lb 0.889 oz Intake: Intake, IV Amount 760 265 left wrist 600 225 left wrist distal port 160 40 Output: Urine 320 90 Urethral (Leahy) 320 90 Other: Voiding Method Indwelling Catheter - Physical Exam Head: Positive for: Atraumatic, Normocephalic Pupils: Positive for: PERRL Extroacular Muscles: Positive for: EOMI Mouth: Positive for: Moist Mucous Membranes Neck: Positive for: Normal Range of Motion, Trachea Midline. Negative for: Meningeal Signs, JVD, Lymphadenopathy Respiratory/Chest: Positive for: Clear to Auscultation, Good Air Exchange. Negative for: Respiratory Distress, Accessory Muscle Use, Wheezes, Rales, Rhonchi, Tachypneic Cardiovascular: Positive for: Normal S1, S2, Irregular Rhythm. Negative for: Murmurs Abdomen: Positive for: Normal Bowel Sounds. Negative for: Tenderness, Distention, Peritoneal Signs, Rebound, Guarding Upper Extremity: Positive for: Normal Inspection, NORMAL PULSES. Negative for: Cyanosis, Edema Lower Extremity: Positive for: Normal Inspection, NORMAL PULSES. Negative for: Edema, CALF TENDERNESS, Cyanosis Neurological: Positive for: GCS=15, CN II-XII Intact, Speech Normal, Motor Func Grossly Intact, Normal Sensory Function Skin: Positive for: Warm, Dry, Normal Color. Negative for: Rashes Psychiatric: Positive for: Alert, Oriented x 3, Lethargic - Medications Active Medications: Active Medications Generic Name Dose Route Start Last Admin Trade Name Freq PRN Reason Stop Dose Admin Influenza Virus Vaccine 60 mcg 07/27/18 11:46 Fluzone Quad [id number] IM 07/27/18 11:47 .ONCE ONE Pantoprazole Sodium 40 mg 07/24/18 10:00 07/24/18 11:52 Protonix Inj IVP 40 mg DAILY SANYA Administration Pneumococcal Polyvalent Vaccine 0.5 ml 07/27/18 11:46 Prevnar 13 IM 07/27/18 11:47 .ONCE ONE - Patient Studies Lab Studies: Microbiology Studies 07/23/18 21:39 Urine Culture - Final Urine Gram Positive Cocci Lab Studies 07/24/18 07/24/18 07/24/18 Range/Units 06:11 06:11 06:11 WBC 11.7 H (4.8-10.8) K/uL RBC 4.91 (3.80-5.20) Mil/uL Hgb 12.4 (11.0-16.0) g/dL Hct 37.9 (34.0-47.0) % MCV 77.3 L (81.0-99.0) fL MCH 25.2 L (27.0-31.0) pg MCHC 32.6 L (33.0-37.0) g/dL RDW 16.4 H (11.5-14.5) % Plt Count 216 (130-400) K/uL MPV 8.4 (7.2-11.7) fL Neut % (Auto) (50.0-75.0) % Lymph % (Auto) (20.0-40.0) % Johnston % (Auto) (0.0-10.0) % Eos % (Auto) (0.0-4.0) % Baso % (Auto) (0.0-2.0) % Neut # (Auto) (1.8-7.0) K/uL Lymph # (Auto) (1.0-4.3) K/uL Johnston # (Auto) (0.0-0.8) K/uL Eos # (Auto) (0.0-0.7) K/uL Baso # (Auto) (0.0-0.2) K/uL ESR 23 H (0-20) mm/hr PT (9.7-12.2) SECONDS INR APTT (21-34) SECONDS Sodium 142 (132-148) mmol/L Potassium 5.8 H (3.6-5.2) mmol/L Chloride 108 H (98-107) mmol/L Carbon Dioxide 16 L (22-30) mmol/L Anion Gap 23 H (10-20) BUN 6 L (7-17) mg/dL Creatinine 0.8 (0.7-1.2) mg/dL Est GFR ( Amer) > 60 Est GFR (Non-Af Amer) > 60 POC Glucose (mg/dL) (65-110) mg/dL Random Glucose 144 H (65-105) mg/dL Hemoglobin A1c (4.2-6.5) % Calcium 9.4 (8.6-10.4) mg/dl Phosphorus 2.8 (2.5-4.5) mg/dL Magnesium 1.7 (1.6-2.3) mg/dL Total Bilirubin 0.5 (0.2-1.3) mg/dL AST 31 (14-36) U/L ALT 31 (9-52) U/L Alkaline Phosphatase 58 (38-126) U/L Total Creatine Kinase 213 H (30-135) U/L CK-MB (Mass) 1.54 (0.0-3.38) ng/mL Troponin I < 0.0120 (0.00-0.120) ng/mL C-React Prot High Sens 5.92 H (1.00-3.00) mg/L NT-Pro-B Natriuret Pep 264 (0-450) pg/mL Total Protein 7.7 (6.3-8.3) g/dL Albumin 4.1 (3.5-5.0) g/dL Globulin 3.6 (2.2-3.9) gm/dL Albumin/Globulin Ratio 1.1 (1.0-2.1) Triglycerides 55 D (0-149) mg/dL Cholesterol 194 (0-199) mg/dL LDL Cholesterol Direct 162 H (0-129) mg/dL HDL Cholesterol 34 (30-70) mg/dL Lipase (23-300) U/L Vitamin B12 537 (239-931) pg/mL Thyroxine (T4) 11.8 H (5.5-11.0) ug/dL Total T3 1.75 (1.49-2.60) nmol/L TSH 3rd Generation 0.41 L (0.46-4.68) mIU/L Urine Color (YELLOW) Urine Clarity (Clear) Urine pH (5.0-8.0) Ur Specific Ellsworth (1.003-1.030) Urine Protein (NEGATIVE) mg/dL Urine Glucose (UA) (Normal) mg/dL Urine Ketones (NEGATIVE) mg/dL Urine Blood (NEGATIVE) Urine Nitrate (NEGATIVE) Urine Bilirubin (NEGATIVE) Urine Urobilinogen (0.2-1.0) mg/dL Ur Leukocyte Esterase (Negative) Mavis/uL Urine RBC (Auto) (0-3) /hpf Ur Squamous Epith Cells (0-5) /hpf Urine Bacteria (<OCC) Urine HCG, Qual (NEGATIVE) Urine Opiates Screen (NEGATIVE) Urine Methadone Screen (NEGATIVE) Ur Barbiturates Screen (NEGATIVE) Ur Phencyclidine Scrn (NEGATIVE) Ur Amphetamines Screen (NEGATIVE) U Benzodiazepines Scrn (NEGATIVE) U Oth Cocaine Metabols (NEGATIVE) U Cannabinoids Screen (NEGATIVE) Blood Type Antibody Screen 07/23/18 07/23/18 07/23/18 Range/Units 21:39 21:39 21:32 WBC (4.8-10.8) K/uL RBC (3.80-5.20) Mil/uL Hgb (11.0-16.0) g/dL Hct (34.0-47.0) % MCV (81.0-99.0) fL MCH (27.0-31.0) pg MCHC (33.0-37.0) g/dL RDW (11.5-14.5) % Plt Count (130-400) K/uL MPV (7.2-11.7) fL Neut % (Auto) (50.0-75.0) % Lymph % (Auto) (20.0-40.0) % Johnston % (Auto) (0.0-10.0) % Eos % (Auto) (0.0-4.0) % Baso % (Auto) (0.0-2.0) % Neut # (Auto) (1.8-7.0) K/uL Lymph # (Auto) (1.0-4.3) K/uL Johnston # (Auto) (0.0-0.8) K/uL Eos # (Auto) (0.0-0.7) K/uL Baso # (Auto) (0.0-0.2) K/uL ESR (0-20) mm/hr PT (9.7-12.2) SECONDS INR APTT (21-34) SECONDS Sodium (132-148) mmol/L Potassium (3.6-5.2) mmol/L Chloride (98-107) mmol/L Carbon Dioxide (22-30) mmol/L Anion Gap (10-20) BUN (7-17) mg/dL Creatinine (0.7-1.2) mg/dL Est GFR ( Amer) Est GFR (Non-Af Amer) POC Glucose (mg/dL) (65-110) mg/dL Random Glucose (65-105) mg/dL Hemoglobin A1c (4.2-6.5) % Calcium (8.6-10.4) mg/dl Phosphorus (2.5-4.5) mg/dL Magnesium (1.6-2.3) mg/dL Total Bilirubin (0.2-1.3) mg/dL AST (14-36) U/L ALT (9-52) U/L Alkaline Phosphatase (38-126) U/L Total Creatine Kinase (30-135) U/L CK-MB (Mass) (0.0-3.38) ng/mL Troponin I (0.00-0.120) ng/mL C-React Prot High Sens (1.00-3.00) mg/L NT-Pro-B Natriuret Pep (0-450) pg/mL Total Protein (6.3-8.3) g/dL Albumin (3.5-5.0) g/dL Globulin (2.2-3.9) gm/dL Albumin/Globulin Ratio (1.0-2.1) Triglycerides (0-149) mg/dL Cholesterol (0-199) mg/dL LDL Cholesterol Direct (0-129) mg/dL HDL Cholesterol (30-70) mg/dL Lipase (23-300) U/L Vitamin B12 (239-931) pg/mL Thyroxine (T4) (5.5-11.0) ug/dL Total T3 (1.49-2.60) nmol/L TSH 3rd Generation (0.46-4.68) mIU/L Urine Color Uyen (YELLOW) Urine Clarity Hazy (Clear) Urine pH 6.0 (5.0-8.0) Ur Specific Ellsworth 1.030 (1.003-1.030) Urine Protein 100 (NEGATIVE) mg/dL Urine Glucose (UA) Negative (Normal) mg/dL Urine Ketones Negative (NEGATIVE) mg/dL Urine Blood Trace (NEGATIVE) Urine Nitrate Negative (NEGATIVE) Urine Bilirubin Small (NEGATIVE) Urine Urobilinogen 0.2 (0.2-1.0) mg/dL Ur Leukocyte Esterase Negative (Negative) Mavis/uL Urine RBC (Auto) 5 H (0-3) /hpf Ur Squamous Epith Cells 4 (0-5) /hpf Urine Bacteria Occ H (<OCC) Urine HCG, Qual Negative (NEGATIVE) Urine Opiates Screen Negative (NEGATIVE) Urine Methadone Screen Negative (NEGATIVE) Ur Barbiturates Screen Negative (NEGATIVE) Ur Phencyclidine Scrn Negative (NEGATIVE) Ur Amphetamines Screen Negative (NEGATIVE) U Benzodiazepines Scrn Negative (NEGATIVE) U Oth Cocaine Metabols Negative (NEGATIVE) U Cannabinoids Screen Negative (NEGATIVE) Blood Type A POSITIVE Antibody Screen Negative 07/23/18 07/23/18 07/23/18 Range/Units 21:12 21:12 21:12 WBC (4.8-10.8) K/uL RBC (3.80-5.20) Mil/uL Hgb (11.0-16.0) g/dL Hct (34.0-47.0) % MCV (81.0-99.0) fL MCH (27.0-31.0) pg MCHC (33.0-37.0) g/dL RDW (11.5-14.5) % Plt Count (130-400) K/uL MPV (7.2-11.7) fL Neut % (Auto) (50.0-75.0) % Lymph % (Auto) (20.0-40.0) % Johnston % (Auto) (0.0-10.0) % Eos % (Auto) (0.0-4.0) % Baso % (Auto) (0.0-2.0) % Neut # (Auto) (1.8-7.0) K/uL Lymph # (Auto) (1.0-4.3) K/uL Johnston # (Auto) (0.0-0.8) K/uL Eos # (Auto) (0.0-0.7) K/uL Baso # (Auto) (0.0-0.2) K/uL ESR (0-20) mm/hr PT 11.8 (9.7-12.2) SECONDS INR 1.1 APTT 24 (21-34) SECONDS Sodium 143 (132-148) mmol/L Potassium 3.0 L (3.6-5.2) mmol/L Chloride 108 H (98-107) mmol/L Carbon Dioxide 18 L (22-30) mmol/L Anion Gap 20 (10-20) BUN 5 L (7-17) mg/dL Creatinine 0.9 (0.7-1.2) mg/dL Est GFR ( Amer) > 60 Est GFR (Non-Af Amer) > 60 POC Glucose (mg/dL) (65-110) mg/dL Random Glucose 127 H (65-105) mg/dL Hemoglobin A1c 5.7 (4.2-6.5) % Calcium 9.7 (8.6-10.4) mg/dl Phosphorus (2.5-4.5) mg/dL Magnesium (1.6-2.3) mg/dL Total Bilirubin 0.3 (0.2-1.3) mg/dL AST 19 (14-36) U/L ALT 28 (9-52) U/L Alkaline Phosphatase 57 (38-126) U/L Total Creatine Kinase (30-135) U/L CK-MB (Mass) (0.0-3.38) ng/mL Troponin I < 0.0120 (0.00-0.120) ng/mL C-React Prot High Sens (1.00-3.00) mg/L NT-Pro-B Natriuret Pep (0-450) pg/mL Total Protein 7.5 (6.3-8.3) g/dL Albumin 4.1 (3.5-5.0) g/dL Globulin 3.5 (2.2-3.9) gm/dL Albumin/Globulin Ratio 1.2 (1.0-2.1) Triglycerides 137 (0-149) mg/dL Cholesterol 196 (0-199) mg/dL LDL Cholesterol Direct 143 H (0-129) mg/dL HDL Cholesterol 28 L (30-70) mg/dL Lipase 150 (23-300) U/L Vitamin B12 (239-931) pg/mL Thyroxine (T4) (5.5-11.0) ug/dL Total T3 (1.49-2.60) nmol/L TSH 3rd Generation (0.46-4.68) mIU/L Urine Color (YELLOW) Urine Clarity (Clear) Urine pH (5.0-8.0) Ur Specific Ellsworth (1.003-1.030) Urine Protein (NEGATIVE) mg/dL Urine Glucose (UA) (Normal) mg/dL Urine Ketones (NEGATIVE) mg/dL Urine Blood (NEGATIVE) Urine Nitrate (NEGATIVE) Urine Bilirubin (NEGATIVE) Urine Urobilinogen (0.2-1.0) mg/dL Ur Leukocyte Esterase (Negative) Mavis/uL Urine RBC (Auto) (0-3) /hpf Ur Squamous Epith Cells (0-5) /hpf Urine Bacteria (<OCC) Urine HCG, Qual (NEGATIVE) Urine Opiates Screen (NEGATIVE) Urine Methadone Screen (NEGATIVE) Ur Barbiturates Screen (NEGATIVE) Ur Phencyclidine Scrn (NEGATIVE) Ur Amphetamines Screen (NEGATIVE) U Benzodiazepines Scrn (NEGATIVE) U Oth Cocaine Metabols (NEGATIVE) U Cannabinoids Screen (NEGATIVE) Blood Type Antibody Screen 07/23/18 07/23/18 Range/Units 21:12 21:03 WBC 9.5 (4.8-10.8) K/uL RBC 5.00 (3.80-5.20) Mil/uL Hgb 12.4 (11.0-16.0) g/dL Hct 38.4 (34.0-47.0) % MCV 76.8 L (81.0-99.0) fL MCH 24.8 L (27.0-31.0) pg MCHC 32.3 L (33.0-37.0) g/dL RDW 15.6 H (11.5-14.5) % Plt Count 285 (130-400) K/uL MPV 8.0 (7.2-11.7) fL Neut % (Auto) 45.9 L (50.0-75.0) % Lymph % (Auto) 39.7 (20.0-40.0) % Johnston % (Auto) 12.6 H (0.0-10.0) % Eos % (Auto) 1.0 (0.0-4.0) % Baso % (Auto) 0.8 (0.0-2.0) % Neut # (Auto) 4.3 (1.8-7.0) K/uL Lymph # (Auto) 3.8 (1.0-4.3) K/uL Johnston # (Auto) 1.2 H (0.0-0.8) K/uL Eos # (Auto) 0.1 (0.0-0.7) K/uL Baso # (Auto) 0.1 (0.0-0.2) K/uL ESR (0-20) mm/hr PT (9.7-12.2) SECONDS INR APTT (21-34) SECONDS Sodium (132-148) mmol/L Potassium (3.6-5.2) mmol/L Chloride (98-107) mmol/L Carbon Dioxide (22-30) mmol/L Anion Gap (10-20) BUN (7-17) mg/dL Creatinine (0.7-1.2) mg/dL Est GFR ( Amer) Est GFR (Non-Af Amer) POC Glucose (mg/dL) 108 (65-110) mg/dL Random Glucose (65-105) mg/dL Hemoglobin A1c (4.2-6.5) % Calcium (8.6-10.4) mg/dl Phosphorus (2.5-4.5) mg/dL Magnesium (1.6-2.3) mg/dL Total Bilirubin (0.2-1.3) mg/dL AST (14-36) U/L ALT (9-52) U/L Alkaline Phosphatase (38-126) U/L Total Creatine Kinase (30-135) U/L CK-MB (Mass) (0.0-3.38) ng/mL Troponin I (0.00-0.120) ng/mL C-React Prot High Sens (1.00-3.00) mg/L NT-Pro-B Natriuret Pep (0-450) pg/mL Total Protein (6.3-8.3) g/dL Albumin (3.5-5.0) g/dL Globulin (2.2-3.9) gm/dL Albumin/Globulin Ratio (1.0-2.1) Triglycerides (0-149) mg/dL Cholesterol (0-199) mg/dL LDL Cholesterol Direct (0-129) mg/dL HDL Cholesterol (30-70) mg/dL Lipase (23-300) U/L Vitamin B12 (239-931) pg/mL Thyroxine (T4) (5.5-11.0) ug/dL Total T3 (1.49-2.60) nmol/L TSH 3rd Generation (0.46-4.68) mIU/L Urine Color (YELLOW) Urine Clarity (Clear) Urine pH (5.0-8.0) Ur Specific Ellsworth (1.003-1.030) Urine Protein (NEGATIVE) mg/dL Urine Glucose (UA) (Normal) mg/dL Urine Ketones (NEGATIVE) mg/dL Urine Blood (NEGATIVE) Urine Nitrate (NEGATIVE) Urine Bilirubin (NEGATIVE) Urine Urobilinogen (0.2-1.0) mg/dL Ur Leukocyte Esterase (Negative) Mavis/uL Urine RBC (Auto) (0-3) /hpf Ur Squamous Epith Cells (0-5) /hpf Urine Bacteria (<OCC) Urine HCG, Qual (NEGATIVE) Urine Opiates Screen (NEGATIVE) Urine Methadone Screen (NEGATIVE) Ur Barbiturates Screen (NEGATIVE) Ur Phencyclidine Scrn (NEGATIVE) Ur Amphetamines Screen (NEGATIVE) U Benzodiazepines Scrn (NEGATIVE) U Oth Cocaine Metabols (NEGATIVE) U Cannabinoids Screen (NEGATIVE) Blood Type Antibody Screen Laboratory Results - last 24 hr 07/23/18 07/23/18 07/23/18 21:03 21:12 21:12 WBC 9.5 RBC 5.00 Hgb 12.4 Hct 38.4 MCV 76.8 L MCH 24.8 L MCHC 32.3 L RDW 15.6 H Plt Count 285 MPV 8.0 Neut % (Auto) 45.9 L Lymph % (Auto) 39.7 Johnston % (Auto) 12.6 H Eos % (Auto) 1.0 Baso % (Auto) 0.8 Neut # (Auto) 4.3 Lymph # (Auto) 3.8 Johnston # (Auto) 1.2 H Eos # (Auto) 0.1 Baso # (Auto) 0.1 ESR PT 11.8 INR 1.1 APTT 24 Sodium Potassium Chloride Carbon Dioxide Anion Gap BUN Creatinine Est GFR ( Amer) Est GFR (Non-Af Amer) POC Glucose (mg/dL) 108 Random Glucose Hemoglobin A1c Calcium Phosphorus Magnesium Total Bilirubin AST ALT Alkaline Phosphatase Total Creatine Kinase CK-MB (Mass) Troponin I C-React Prot High Sens NT-Pro-B Natriuret Pep Total Protein Albumin Globulin Albumin/Globulin Ratio Triglycerides Cholesterol LDL Cholesterol Direct HDL Cholesterol Lipase Vitamin B12 Thyroxine (T4) Total T3 TSH 3rd Generation Urine Color Urine Clarity Urine pH Ur Specific Ellsworth Urine Protein Urine Glucose (UA) Urine Ketones Urine Blood Urine Nitrate Urine Bilirubin Urine Urobilinogen Ur Leukocyte Esterase Urine RBC (Auto) Ur Squamous Epith Cells Urine Bacteria Urine HCG, Qual Urine Opiates Screen Urine Methadone Screen Ur Barbiturates Screen Ur Phencyclidine Scrn Ur Amphetamines Screen U Benzodiazepines Scrn U Oth Cocaine Metabols U Cannabinoids Screen Blood Type Antibody Screen 07/23/18 07/23/18 07/23/18 21:12 21:12 21:32 WBC RBC Hgb Hct MCV MCH MCHC RDW Plt Count MPV Neut % (Auto) Lymph % (Auto) Johnston % (Auto) Eos % (Auto) Baso % (Auto) Neut # (Auto) Lymph # (Auto) Johnston # (Auto) Eos # (Auto) Baso # (Auto) ESR PT INR APTT Sodium 143 Potassium 3.0 L Chloride 108 H Carbon Dioxide 18 L Anion Gap 20 BUN 5 L Creatinine 0.9 Est GFR ( Amer) > 60 Est GFR (Non-Af Amer) > 60 POC Glucose (mg/dL) Random Glucose 127 H Hemoglobin A1c 5.7 Calcium 9.7 Phosphorus Magnesium Total Bilirubin 0.3 AST 19 ALT 28 Alkaline Phosphatase 57 Total Creatine Kinase CK-MB (Mass) Troponin I < 0.0120 C-React Prot High Sens NT-Pro-B Natriuret Pep Total Protein 7.5 Albumin 4.1 Globulin 3.5 Albumin/Globulin Ratio 1.2 Triglycerides 137 Cholesterol 196 LDL Cholesterol Direct 143 H HDL Cholesterol 28 L Lipase 150 Vitamin B12 Thyroxine (T4) Total T3 TSH 3rd Generation Urine Color Urine Clarity Urine pH Ur Specific Ellsworth Urine Protein Urine Glucose (UA) Urine Ketones Urine Blood Urine Nitrate Urine Bilirubin Urine Urobilinogen Ur Leukocyte Esterase Urine RBC (Auto) Ur Squamous Epith Cells Urine Bacteria Urine HCG, Qual Urine Opiates Screen Urine Methadone Screen Ur Barbiturates Screen Ur Phencyclidine Scrn Ur Amphetamines Screen U Benzodiazepines Scrn U Oth Cocaine Metabols U Cannabinoids Screen Blood Type A POSITIVE Antibody Screen Negative 07/23/18 07/23/18 07/24/18 21:39 21:39 06:11 WBC 11.7 H RBC 4.91 Hgb 12.4 Hct 37.9 MCV 77.3 L MCH 25.2 L MCHC 32.6 L RDW 16.4 H Plt Count 216 MPV 8.4 Neut % (Auto) Lymph % (Auto) Johnston % (Auto) Eos % (Auto) Baso % (Auto) Neut # (Auto) Lymph # (Auto) Johnston # (Auto) Eos # (Auto) Baso # (Auto) ESR 23 H PT INR APTT Sodium Potassium Chloride Carbon Dioxide Anion Gap BUN Creatinine Est GFR ( Amer) Est GFR (Non-Af Amer) POC Glucose (mg/dL) Random Glucose Hemoglobin A1c Calcium Phosphorus Magnesium Total Bilirubin AST ALT Alkaline Phosphatase Total Creatine Kinase CK-MB (Mass) Troponin I C-React Prot High Sens NT-Pro-B Natriuret Pep Total Protein Albumin Globulin Albumin/Globulin Ratio Triglycerides Cholesterol LDL Cholesterol Direct HDL Cholesterol Lipase Vitamin B12 Thyroxine (T4) Total T3 TSH 3rd Generation Urine Color Uyen Urine Clarity Hazy Urine pH 6.0 Ur Specific Ellsworth 1.030 Urine Protein 100 Urine Glucose (UA) Negative Urine Ketones Negative Urine Blood Trace Urine Nitrate Negative Urine Bilirubin Small Urine Urobilinogen 0.2 Ur Leukocyte Esterase Negative Urine RBC (Auto) 5 H Ur Squamous Epith Cells 4 Urine Bacteria Occ H Urine HCG, Qual Negative Urine Opiates Screen Negative Urine Methadone Screen Negative Ur Barbiturates Screen Negative Ur Phencyclidine Scrn Negative Ur Amphetamines Screen Negative U Benzodiazepines Scrn Negative U Oth Cocaine Metabols Negative U Cannabinoids Screen Negative Blood Type Antibody Screen 07/24/18 07/24/18 06:11 06:11 WBC RBC Hgb Hct MCV MCH MCHC RDW Plt Count MPV Neut % (Auto) Lymph % (Auto) Johnston % (Auto) Eos % (Auto) Baso % (Auto) Neut # (Auto) Lymph # (Auto) Johnston # (Auto) Eos # (Auto) Baso # (Auto) ESR PT INR APTT Sodium 142 Potassium 5.8 H Chloride 108 H Carbon Dioxide 16 L Anion Gap 23 H BUN 6 L Creatinine 0.8 Est GFR ( Amer) > 60 Est GFR (Non-Af Amer) > 60 POC Glucose (mg/dL) Random Glucose 144 H Hemoglobin A1c Calcium 9.4 Phosphorus 2.8 Magnesium 1.7 Total Bilirubin 0.5 AST 31 ALT 31 Alkaline Phosphatase 58 Total Creatine Kinase 213 H CK-MB (Mass) 1.54 Troponin I < 0.0120 C-React Prot High Sens 5.92 H NT-Pro-B Natriuret Pep 264 Total Protein 7.7 Albumin 4.1 Globulin 3.6 Albumin/Globulin Ratio 1.1 Triglycerides 55 D Cholesterol 194 LDL Cholesterol Direct 162 H HDL Cholesterol 34 Lipase Vitamin B12 537 Thyroxine (T4) 11.8 H Total T3 1.75 TSH 3rd Generation 0.41 L Urine Color Urine Clarity Urine pH Ur Specific Ellsworth Urine Protein Urine Glucose (UA) Urine Ketones Urine Blood Urine Nitrate Urine Bilirubin Urine Urobilinogen Ur Leukocyte Esterase Urine RBC (Auto) Ur Squamous Epith Cells Urine Bacteria Urine HCG, Qual Urine Opiates Screen Urine Methadone Screen Ur Barbiturates Screen Ur Phencyclidine Scrn Ur Amphetamines Screen U Benzodiazepines Scrn U Oth Cocaine Metabols U Cannabinoids Screen Blood Type Antibody Screen EKG/Cardiology Studies: Cardiology / EKG Studies 07/23/18 20:05 EKG [ELECTROCARDIOGRAM] Stat Comment: Mode Of Transportation: BED Reason For Exam: cp 07/23/18 21:04 ELECTROCARDIOGRAM Stat Comment: Mode Of Transportation: BED Reason For Exam: code stroke 07/24/18 00:04 EKG [ELECTROCARDIOGRAM] Stat Comment: Mode Of Transportation: Reason For Exam: afib Fingerstick Blood Sugar Results: 108 Review of Systems - Review of Systems All systems: reviewed and no additional remarkable complaints except (as stated in HPI) Critical Care Progress Note - Nutrition Nutrition: Nutrition Category Date Time Status NPO Diet [DIET] Diets 07/24/18 Breakfast Active Assessment/Plan - Assessment and Plan (Free Text) Assessment: 42 yo female with no significant past medical history or trauma presenting with chief complaint of headache and admitted to ICU for management of intracranial hemorrhage. 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 Erickson consulted. Recs appreciated - Neurosurgery consulted Dr. Delgadillo consulted. Recs appreciated. Pulm: - no acute issues - maintain SpO2>92% CV: - hemodynamically stable - maintain SBP<140 - EKG shows afib - Cardiology consulted. Appreciate recs. - Followup ECHO - heparin drip Heme: - no acute issues - monitor H/H Renal: - monitor urine output Endo: - hormone therapy stopped 3 months ago - maintain euglycemia GI: - NPO - protonix 40 mg IV daily ID: - afebrile, no acute issues DVT proph - no a/c with current bleed, SCDs contraindicated due to concern for DVTs GI proph - protonix 40 mg IV daily Code status - full code Case discussed and reviewed with Dr. Perlita Hess PGY-1 - Date & Time Date: 07/24/18 Time: 08:00 <Manuel Bhat - Last Filed: 07/24/18 16:11> CCU Objective - Vital Signs / Intake & Output Intake and Output (Last 8hrs): Intake & Output 07/24/18 07/24/18 07/24/18 06:59 14:59 22:59 Intake Total 760 515 Output Total 320 355 Balance 440 160 Weight 160 lb 0.889 oz Intake: Intake, IV Amount 760 515 Right PICC 250 left wrist 600 225 left wrist distal port 160 40 Output: Urine 320 355 Urethral (Leahy) 320 355 Other: Voiding Method Indwelling Catheter - Medications Active Medications: Active Medications Generic Name Dose Route Start Last Admin Trade Name Freq PRN Reason Stop Dose Admin Heparin Sodium/Sodium Chloride 25,000 units in 250 mls @ 8.712 mls/hr 07/24/18 11:55 07/24/18 12:35 Heparin 12886 Units/250ml 1/2 Normal Saline IV 12 units/kg/hr .Q24H PRN 8.712 mls/hr ADJUST RATE PER PROTOCOL Administration Protocol 12 UNITS/KG/HR Influenza Virus Vaccine 60 mcg 07/27/18 11:46 Fluzone Quad 6136-5399 IM 07/27/18 11:47 .ONCE ONE Pantoprazole Sodium 40 mg 07/24/18 10:00 07/24/18 11:52 Protonix Inj IVP 40 mg DAILY SANYA Administration Pneumococcal Polyvalent Vaccine 0.5 ml 07/27/18 11:46 Prevnar 13 IM 07/27/18 11:47 .ONCE ONE - Patient Studies Lab Studies: Microbiology Studies 07/23/18 21:39 Urine Culture - Final Urine Gram Positive Cocci Lab Studies 07/24/18 07/24/18 07/24/18 Range/Units 13:29 13:29 06:11 WBC 12.9 H (4.8-10.8) K/uL RBC 4.76 (3.80-5.20) Mil/uL Hgb 11.7 (11.0-16.0) g/dL Hct 36.5 (34.0-47.0) % MCV 76.6 L (81.0-99.0) fL MCH 24.5 L (27.0-31.0) pg MCHC 32.0 L (33.0-37.0) g/dL RDW 15.8 H (11.5-14.5) % Plt Count 195 (130-400) K/uL MPV 7.9 (7.2-11.7) fL Neut % (Auto) 91.5 H (50.0-75.0) % Lymph % (Auto) 5.1 L (20.0-40.0) % Johnston % (Auto) 2.9 (0.0-10.0) % Eos % (Auto) 0.0 (0.0-4.0) % Baso % (Auto) 0.5 (0.0-2.0) % Neut # (Auto) 11.8 H (1.8-7.0) K/uL Lymph # (Auto) 0.7 L (1.0-4.3) K/uL Johnston # (Auto) 0.4 (0.0-0.8) K/uL Eos # (Auto) 0.0 (0.0-0.7) K/uL Baso # (Auto) 0.1 (0.0-0.2) K/uL Neutrophils % (Manual) 87 H (50-75) % Lymphocytes % (Manual) 10 L (20-40) % Monocytes % (Manual) 3 (0-10) % Platelet Estimate Normal (NORMAL) Large Platelets Present Hypochromasia (manual) Slight Poikilocytosis (manual Slight Anisocytosis (manual) Slight Target Cells Slight Ovalocytes Slight ESR (0-20) mm/hr PT (9.7-12.2) SECONDS INR APTT (21-34) SECONDS Sodium 143 (132-148) mmol/L Potassium 4.2 (3.6-5.2) mmol/L Chloride 111 H (98-107) mmol/L Carbon Dioxide 20 L (22-30) mmol/L Anion Gap 17 (10-20) BUN 5 L (7-17) mg/dL Creatinine 0.7 (0.7-1.2) mg/dL Est GFR ( Amer) > 60 Est GFR (Non-Af Amer) > 60 POC Glucose (mg/dL) (65-110) mg/dL Random Glucose 123 H (65-105) mg/dL Hemoglobin A1c (4.2-6.5) % Calcium 8.7 (8.6-10.4) mg/dl Phosphorus 3.4 (2.5-4.5) mg/dL Magnesium 1.8 (1.6-2.3) mg/dL Total Bilirubin 0.3 (0.2-1.3) mg/dL AST 24 (14-36) U/L ALT 31 (9-52) U/L Alkaline Phosphatase 52 (38-126) U/L Total Creatine Kinase (30-135) U/L CK-MB (Mass) (0.0-3.38) ng/mL Troponin I (0.00-0.120) ng/mL C-React Prot High Sens 5.92 H (1.00-3.00) mg/L NT-Pro-B Natriuret Pep (0-450) pg/mL Total Protein 7.1 (6.3-8.3) g/dL Albumin 3.7 (3.5-5.0) g/dL Globulin 3.4 (2.2-3.9) gm/dL Albumin/Globulin Ratio 1.1 (1.0-2.1) Triglycerides (0-149) mg/dL Cholesterol (0-199) mg/dL LDL Cholesterol Direct (0-129) mg/dL HDL Cholesterol (30-70) mg/dL Lipase (23-300) U/L Vitamin B12 (239-931) pg/mL Thyroxine (T4) (5.5-11.0) ug/dL Total T3 (1.49-2.60) nmol/L TSH 3rd Generation (0.46-4.68) mIU/L Urine Color (YELLOW) Urine Clarity (Clear) Urine pH (5.0-8.0) Ur Specific [place] (1.003-1.030) Urine Protein (NEGATIVE) mg/dL Urine Glucose (UA) (Normal) mg/dL Urine Ketones (NEGATIVE) mg/dL Urine Blood (NEGATIVE) Urine Nitrate (NEGATIVE) Urine Bilirubin (NEGATIVE) Urine Urobilinogen (0.2-1.0) mg/dL Ur Leukocyte Esterase (Negative) Mavis/uL Urine RBC (Auto) (0-3) /hpf Ur Squamous Epith Cells (0-5) /hpf Urine Bacteria (<OCC) Urine HCG, Qual (NEGATIVE) Urine Opiates Screen (NEGATIVE) Urine Methadone Screen (NEGATIVE) Ur Barbiturates Screen (NEGATIVE) Ur Phencyclidine Scrn (NEGATIVE) Ur Amphetamines Screen (NEGATIVE) U Benzodiazepines Scrn (NEGATIVE) U Oth Cocaine Metabols (NEGATIVE) U Cannabinoids Screen (NEGATIVE) Blood Type Antibody Screen 07/24/18 07/24/18 07/23/18 Range/Units 06:11 06:11 21:39 WBC 11.7 H (4.8-10.8) K/uL RBC 4.91 (3.80-5.20) Mil/uL Hgb 12.4 (11.0-16.0) g/dL Hct 37.9 (34.0-47.0) % MCV 77.3 L (81.0-99.0) fL MCH 25.2 L (27.0-31.0) pg MCHC 32.6 L (33.0-37.0) g/dL RDW 16.4 H (11.5-14.5) % Plt Count 216 (130-400) K/uL MPV 8.4 (7.2-11.7) fL Neut % (Auto) (50.0-75.0) % Lymph % (Auto) (20.0-40.0) % Johnston % (Auto) (0.0-10.0) % Eos % (Auto) (0.0-4.0) % Baso % (Auto) (0.0-2.0) % Neut # (Auto) (1.8-7.0) K/uL Lymph # (Auto) (1.0-4.3) K/uL Johnston # (Auto) (0.0-0.8) K/uL Eos # (Auto) (0.0-0.7) K/uL Baso # (Auto) (0.0-0.2) K/uL Neutrophils % (Manual) (50-75) % Lymphocytes % (Manual) (20-40) % Monocytes % (Manual) (0-10) % Platelet Estimate (NORMAL) Large Platelets Hypochromasia (manual) Poikilocytosis (manual Anisocytosis (manual) Target Cells Ovalocytes ESR 23 H (0-20) mm/hr PT (9.7-12.2) SECONDS INR APTT (21-34) SECONDS Sodium 142 (132-148) mmol/L Potassium 5.8 H (3.6-5.2) mmol/L Chloride 108 H (98-107) mmol/L Carbon Dioxide 16 L (22-30) mmol/L Anion Gap 23 H (10-20) BUN 6 L (7-17) mg/dL Creatinine 0.8 (0.7-1.2) mg/dL Est GFR ( Amer) > 60 Est GFR (Non-Af Amer) > 60 POC Glucose (mg/dL) (65-110) mg/dL Random Glucose 144 H (65-105) mg/dL Hemoglobin A1c (4.2-6.5) % Calcium 9.4 (8.6-10.4) mg/dl Phosphorus 2.8 (2.5-4.5) mg/dL Magnesium 1.7 (1.6-2.3) mg/dL Total Bilirubin 0.5 (0.2-1.3) mg/dL AST 31 (14-36) U/L ALT 31 (9-52) U/L Alkaline Phosphatase 58 (38-126) U/L Total Creatine Kinase 213 H (30-135) U/L CK-MB (Mass) 1.54 (0.0-3.38) ng/mL Troponin I < 0.0120 (0.00-0.120) ng/mL C-React Prot High Sens (1.00-3.00) mg/L NT-Pro-B Natriuret Pep 264 (0-450) pg/mL Total Protein 7.7 (6.3-8.3) g/dL Albumin 4.1 (3.5-5.0) g/dL Globulin 3.6 (2.2-3.9) gm/dL Albumin/Globulin Ratio 1.1 (1.0-2.1) Triglycerides 55 D (0-149) mg/dL Cholesterol 194 (0-199) mg/dL LDL Cholesterol Direct 162 H (0-129) mg/dL HDL Cholesterol 34 (30-70) mg/dL Lipase (23-300) U/L Vitamin B12 537 (239-931) pg/mL Thyroxine (T4) 11.8 H (5.5-11.0) ug/dL Total T3 1.75 (1.49-2.60) nmol/L TSH 3rd Generation 0.41 L (0.46-4.68) mIU/L Urine Color (YELLOW) Urine Clarity (Clear) Urine pH (5.0-8.0) Ur Specific [place] (1.003-1.030) Urine Protein (NEGATIVE) mg/dL Urine Glucose (UA) (Normal) mg/dL Urine Ketones (NEGATIVE) mg/dL Urine Blood (NEGATIVE) Urine Nitrate (NEGATIVE) Urine Bilirubin (NEGATIVE) Urine Urobilinogen (0.2-1.0) mg/dL Ur Leukocyte Esterase (Negative) Mavis/uL Urine RBC (Auto) (0-3) /hpf Ur Squamous Epith Cells (0-5) /hpf Urine Bacteria (<OCC) Urine HCG, Qual (NEGATIVE) Urine Opiates Screen Negative (NEGATIVE) Urine Methadone Screen Negative (NEGATIVE) Ur Barbiturates Screen Negative (NEGATIVE) Ur Phencyclidine Scrn Negative (NEGATIVE) Ur Amphetamines Screen Negative (NEGATIVE) U Benzodiazepines Scrn Negative (NEGATIVE) U Oth Cocaine Metabols Negative (NEGATIVE) U Cannabinoids Screen Negative (NEGATIVE) Blood Type Antibody Screen 07/23/18 07/23/18 07/23/18 Range/Units 21:39 21:32 21:12 WBC (4.8-10.8) K/uL RBC (3.80-5.20) Mil/uL Hgb (11.0-16.0) g/dL Hct (34.0-47.0) % MCV (81.0-99.0) fL MCH (27.0-31.0) pg MCHC (33.0-37.0) g/dL RDW (11.5-14.5) % Plt Count (130-400) K/uL MPV (7.2-11.7) fL Neut % (Auto) (50.0-75.0) % Lymph % (Auto) (20.0-40.0) % Johnston % (Auto) (0.0-10.0) % Eos % (Auto) (0.0-4.0) % Baso % (Auto) (0.0-2.0) % Neut # (Auto) (1.8-7.0) K/uL Lymph # (Auto) (1.0-4.3) K/uL Johnston # (Auto) (0.0-0.8) K/uL Eos # (Auto) (0.0-0.7) K/uL Baso # (Auto) (0.0-0.2) K/uL Neutrophils % (Manual) (50-75) % Lymphocytes % (Manual) (20-40) % Monocytes % (Manual) (0-10) % Platelet Estimate (NORMAL) Large Platelets Hypochromasia (manual) Poikilocytosis (manual Anisocytosis (manual) Target Cells Ovalocytes ESR (0-20) mm/hr PT (9.7-12.2) SECONDS INR APTT (21-34) SECONDS Sodium (132-148) mmol/L Potassium (3.6-5.2) mmol/L Chloride (98-107) mmol/L Carbon Dioxide (22-30) mmol/L Anion Gap (10-20) BUN (7-17) mg/dL Creatinine (0.7-1.2) mg/dL Est GFR ( Amer) Est GFR (Non-Af Amer) POC Glucose (mg/dL) (65-110) mg/dL Random Glucose (65-105) mg/dL Hemoglobin A1c 5.7 (4.2-6.5) % Calcium (8.6-10.4) mg/dl Phosphorus (2.5-4.5) mg/dL Magnesium (1.6-2.3) mg/dL Total Bilirubin (0.2-1.3) mg/dL AST (14-36) U/L ALT (9-52) U/L Alkaline Phosphatase (38-126) U/L Total Creatine Kinase (30-135) U/L CK-MB (Mass) (0.0-3.38) ng/mL Troponin I (0.00-0.120) ng/mL C-React Prot High Sens (1.00-3.00) mg/L NT-Pro-B Natriuret Pep (0-450) pg/mL Total Protein (6.3-8.3) g/dL Albumin (3.5-5.0) g/dL Globulin (2.2-3.9) gm/dL Albumin/Globulin Ratio (1.0-2.1) Triglycerides (0-149) mg/dL Cholesterol (0-199) mg/dL LDL Cholesterol Direct (0-129) mg/dL HDL Cholesterol (30-70) mg/dL Lipase (23-300) U/L Vitamin B12 (239-931) pg/mL Thyroxine (T4) (5.5-11.0) ug/dL Total T3 (1.49-2.60) nmol/L TSH 3rd Generation (0.46-4.68) mIU/L Urine Color Uyen (YELLOW) Urine Clarity Hazy (Clear) Urine pH 6.0 (5.0-8.0) Ur Specific [place] 1.030 (1.003-1.030) Urine Protein 100 (NEGATIVE) mg/dL Urine Glucose (UA) Negative (Normal) mg/dL Urine Ketones Negative (NEGATIVE) mg/dL Urine Blood Trace (NEGATIVE) Urine Nitrate Negative (NEGATIVE) Urine Bilirubin Small (NEGATIVE) Urine Urobilinogen 0.2 (0.2-1.0) mg/dL Ur Leukocyte Esterase Negative (Negative) Mavis/uL Urine RBC (Auto) 5 H (0-3) /hpf Ur Squamous Epith Cells 4 (0-5) /hpf Urine Bacteria Occ H (<OCC) Urine HCG, Qual Negative (NEGATIVE) Urine Opiates Screen (NEGATIVE) Urine Methadone Screen (NEGATIVE) Ur Barbiturates Screen (NEGATIVE) Ur Phencyclidine Scrn (NEGATIVE) Ur Amphetamines Screen (NEGATIVE) U Benzodiazepines Scrn (NEGATIVE) U Oth Cocaine Metabols (NEGATIVE) U Cannabinoids Screen (NEGATIVE) Blood Type A POSITIVE Antibody Screen Negative 07/23/18 07/23/18 07/23/18 Range/Units 21:12 21:12 21:12 WBC 9.5 (4.8-10.8) K/uL RBC 5.00 (3.80-5.20) Mil/uL Hgb 12.4 (11.0-16.0) g/dL Hct 38.4 (34.0-47.0) % MCV 76.8 L (81.0-99.0) fL MCH 24.8 L (27.0-31.0) pg MCHC 32.3 L (33.0-37.0) g/dL RDW 15.6 H (11.5-14.5) % Plt Count 285 (130-400) K/uL MPV 8.0 (7.2-11.7) fL Neut % (Auto) 45.9 L (50.0-75.0) % Lymph % (Auto) 39.7 (20.0-40.0) % Johnston % (Auto) 12.6 H (0.0-10.0) % Eos % (Auto) 1.0 (0.0-4.0) % Baso % (Auto) 0.8 (0.0-2.0) % Neut # (Auto) 4.3 (1.8-7.0) K/uL Lymph # (Auto) 3.8 (1.0-4.3) K/uL Johnston # (Auto) 1.2 H (0.0-0.8) K/uL Eos # (Auto) 0.1 (0.0-0.7) K/uL Baso # (Auto) 0.1 (0.0-0.2) K/uL Neutrophils % (Manual) (50-75) % Lymphocytes % (Manual) (20-40) % Monocytes % (Manual) (0-10) % Platelet Estimate (NORMAL) Large Platelets Hypochromasia (manual) Poikilocytosis (manual Anisocytosis (manual) Target Cells Ovalocytes ESR (0-20) mm/hr PT 11.8 (9.7-12.2) SECONDS INR 1.1 APTT 24 (21-34) SECONDS Sodium 143 (132-148) mmol/L Potassium 3.0 L (3.6-5.2) mmol/L Chloride 108 H (98-107) mmol/L Carbon Dioxide 18 L (22-30) mmol/L Anion Gap 20 (10-20) BUN 5 L (7-17) mg/dL Creatinine 0.9 (0.7-1.2) mg/dL Est GFR ( Amer) > 60 Est GFR (Non-Af Amer) > 60 POC Glucose (mg/dL) (65-110) mg/dL Random Glucose 127 H (65-105) mg/dL Hemoglobin A1c (4.2-6.5) % Calcium 9.7 (8.6-10.4) mg/dl Phosphorus (2.5-4.5) mg/dL Magnesium (1.6-2.3) mg/dL Total Bilirubin 0.3 (0.2-1.3) mg/dL AST 19 (14-36) U/L ALT 28 (9-52) U/L Alkaline Phosphatase 57 (38-126) U/L Total Creatine Kinase (30-135) U/L CK-MB (Mass) (0.0-3.38) ng/mL Troponin I < 0.0120 (0.00-0.120) ng/mL C-React Prot High Sens (1.00-3.00) mg/L NT-Pro-B Natriuret Pep (0-450) pg/mL Total Protein 7.5 (6.3-8.3) g/dL Albumin 4.1 (3.5-5.0) g/dL Globulin 3.5 (2.2-3.9) gm/dL Albumin/Globulin Ratio 1.2 (1.0-2.1) Triglycerides 137 (0-149) mg/dL Cholesterol 196 (0-199) mg/dL LDL Cholesterol Direct 143 H (0-129) mg/dL HDL Cholesterol 28 L (30-70) mg/dL Lipase 150 (23-300) U/L Vitamin B12 (239-931) pg/mL Thyroxine (T4) (5.5-11.0) ug/dL Total T3 (1.49-2.60) nmol/L TSH 3rd Generation (0.46-4.68) mIU/L Urine Color (YELLOW) Urine Clarity (Clear) Urine pH (5.0-8.0) Ur Specific [place] (1.003-1.030) Urine Protein (NEGATIVE) mg/dL Urine Glucose (UA) (Normal) mg/dL Urine Ketones (NEGATIVE) mg/dL Urine Blood (NEGATIVE) Urine Nitrate (NEGATIVE) Urine Bilirubin (NEGATIVE) Urine Urobilinogen (0.2-1.0) mg/dL Ur Leukocyte Esterase (Negative) Mavis/uL Urine RBC (Auto) (0-3) /hpf Ur Squamous Epith Cells (0-5) /hpf Urine Bacteria (<OCC) Urine HCG, Qual (NEGATIVE) Urine Opiates Screen (NEGATIVE) Urine Methadone Screen (NEGATIVE) Ur Barbiturates Screen (NEGATIVE) Ur Phencyclidine Scrn (NEGATIVE) Ur Amphetamines Screen (NEGATIVE) U Benzodiazepines Scrn (NEGATIVE) U Oth Cocaine Metabols (NEGATIVE) U Cannabinoids Screen (NEGATIVE) Blood Type Antibody Screen 07/23/18 Range/Units 21:03 WBC (4.8-10.8) K/uL RBC (3.80-5.20) Mil/uL Hgb (11.0-16.0) g/dL Hct (34.0-47.0) % MCV (81.0-99.0) fL MCH (27.0-31.0) pg MCHC (33.0-37.0) g/dL RDW (11.5-14.5) % Plt Count (130-400) K/uL MPV (7.2-11.7) fL Neut % (Auto) (50.0-75.0) % Lymph % (Auto) (20.0-40.0) % Johnston % (Auto) (0.0-10.0) % Eos % (Auto) (0.0-4.0) % Baso % (Auto) (0.0-2.0) % Neut # (Auto) (1.8-7.0) K/uL Lymph # (Auto) (1.0-4.3) K/uL Johnston # (Auto) (0.0-0.8) K/uL Eos # (Auto) (0.0-0.7) K/uL Baso # (Auto) (0.0-0.2) K/uL Neutrophils % (Manual) (50-75) % Lymphocytes % (Manual) (20-40) % Monocytes % (Manual) (0-10) % Platelet Estimate (NORMAL) Large Platelets Hypochromasia (manual) Poikilocytosis (manual Anisocytosis (manual) Target Cells Ovalocytes ESR (0-20) mm/hr PT (9.7-12.2) SECONDS INR APTT (21-34) SECONDS Sodium (132-148) mmol/L Potassium (3.6-5.2) mmol/L Chloride (98-107) mmol/L Carbon Dioxide (22-30) mmol/L Anion Gap (10-20) BUN (7-17) mg/dL Creatinine (0.7-1.2) mg/dL Est GFR ( Amer) Est GFR (Non-Af Amer) POC Glucose (mg/dL) 108 (65-110) mg/dL Random Glucose (65-105) mg/dL Hemoglobin A1c (4.2-6.5) % Calcium (8.6-10.4) mg/dl Phosphorus (2.5-4.5) mg/dL Magnesium (1.6-2.3) mg/dL Total Bilirubin (0.2-1.3) mg/dL AST (14-36) U/L ALT (9-52) U/L Alkaline Phosphatase (38-126) U/L Total Creatine Kinase (30-135) U/L CK-MB (Mass) (0.0-3.38) ng/mL Troponin I (0.00-0.120) ng/mL C-React Prot High Sens (1.00-3.00) mg/L NT-Pro-B Natriuret Pep (0-450) pg/mL Total Protein (6.3-8.3) g/dL Albumin (3.5-5.0) g/dL Globulin (2.2-3.9) gm/dL Albumin/Globulin Ratio (1.0-2.1) Triglycerides (0-149) mg/dL Cholesterol (0-199) mg/dL LDL Cholesterol Direct (0-129) mg/dL HDL Cholesterol (30-70) mg/dL Lipase (23-300) U/L Vitamin B12 (239-931) pg/mL Thyroxine (T4) (5.5-11.0) ug/dL Total T3 (1.49-2.60) nmol/L TSH 3rd Generation (0.46-4.68) mIU/L Urine Color (YELLOW) Urine Clarity (Clear) Urine pH (5.0-8.0) Ur Specific [place] (1.003-1.030) Urine Protein (NEGATIVE) mg/dL Urine Glucose (UA) (Normal) mg/dL Urine Ketones (NEGATIVE) mg/dL Urine Blood (NEGATIVE) Urine Nitrate (NEGATIVE) Urine Bilirubin (NEGATIVE) Urine Urobilinogen (0.2-1.0) mg/dL Ur Leukocyte Esterase (Negative) Mavis/uL Urine RBC (Auto) (0-3) /hpf Ur Squamous Epith Cells (0-5) /hpf Urine Bacteria (<OCC) Urine HCG, Qual (NEGATIVE) Urine Opiates Screen (NEGATIVE) Urine Methadone Screen (NEGATIVE) Ur Barbiturates Screen (NEGATIVE) Ur Phencyclidine Scrn (NEGATIVE) Ur Amphetamines Screen (NEGATIVE) U Benzodiazepines Scrn (NEGATIVE) U Oth Cocaine Metabols (NEGATIVE) U Cannabinoids Screen (NEGATIVE) Blood Type Antibody Screen Laboratory Results - last 24 hr 07/23/18 07/23/18 07/23/18 21:03 21:12 21:12 WBC 9.5 RBC 5.00 Hgb 12.4 Hct 38.4 MCV 76.8 L MCH 24.8 L MCHC 32.3 L RDW 15.6 H Plt Count 285 MPV 8.0 Neut % (Auto) 45.9 L Lymph % (Auto) 39.7 Johnston % (Auto) 12.6 H Eos % (Auto) 1.0 Baso % (Auto) 0.8 Neut # (Auto) 4.3 Lymph # (Auto) 3.8 Johnston # (Auto) 1.2 H Eos # (Auto) 0.1 Baso # (Auto) 0.1 Neutrophils % (Manual) Lymphocytes % (Manual) Monocytes % (Manual) Platelet Estimate Large Platelets Hypochromasia (manual) Poikilocytosis (manual Anisocytosis (manual) Target Cells Ovalocytes ESR PT 11.8 INR 1.1 APTT 24 Sodium Potassium Chloride Carbon Dioxide Anion Gap BUN Creatinine Est GFR ( Amer) Est GFR (Non-Af Amer) POC Glucose (mg/dL) 108 Random Glucose Hemoglobin A1c Calcium Phosphorus Magnesium Total Bilirubin AST ALT Alkaline Phosphatase Total Creatine Kinase CK-MB (Mass) Troponin I C-React Prot High Sens NT-Pro-B Natriuret Pep Total Protein Albumin Globulin Albumin/Globulin Ratio Triglycerides Cholesterol LDL Cholesterol Direct HDL Cholesterol Lipase Vitamin B12 Thyroxine (T4) Total T3 TSH 3rd Generation Urine Color Urine Clarity Urine pH Ur Specific [place] Urine Protein Urine Glucose (UA) Urine Ketones Urine Blood Urine Nitrate Urine Bilirubin Urine Urobilinogen Ur Leukocyte Esterase Urine RBC (Auto) Ur Squamous Epith Cells Urine Bacteria Urine HCG, Qual Urine Opiates Screen Urine Methadone Screen Ur Barbiturates Screen Ur Phencyclidine Scrn Ur Amphetamines Screen U Benzodiazepines Scrn U Oth Cocaine Metabols U Cannabinoids Screen Blood Type Antibody Screen 07/23/18 07/23/18 07/23/18 21:12 21:12 21:32 WBC RBC Hgb Hct MCV MCH MCHC RDW Plt Count MPV Neut % (Auto) Lymph % (Auto) Johnston % (Auto) Eos % (Auto) Baso % (Auto) Neut # (Auto) Lymph # (Auto) Johnston # (Auto) Eos # (Auto) Baso # (Auto) Neutrophils % (Manual) Lymphocytes % (Manual) Monocytes % (Manual) Platelet Estimate Large Platelets Hypochromasia (manual) Poikilocytosis (manual Anisocytosis (manual) Target Cells Ovalocytes ESR PT INR APTT Sodium 143 Potassium 3.0 L Chloride 108 H Carbon Dioxide 18 L Anion Gap 20 BUN 5 L Creatinine 0.9 Est GFR ( Amer) > 60 Est GFR (Non-Af Amer) > 60 POC Glucose (mg/dL) Random Glucose 127 H Hemoglobin A1c 5.7 Calcium 9.7 Phosphorus Magnesium Total Bilirubin 0.3 AST 19 ALT 28 Alkaline Phosphatase 57 Total Creatine Kinase CK-MB (Mass) Troponin I < 0.0120 C-React Prot High Sens NT-Pro-B Natriuret Pep Total Protein 7.5 Albumin 4.1 Globulin 3.5 Albumin/Globulin Ratio 1.2 Triglycerides 137 Cholesterol 196 LDL Cholesterol Direct 143 H HDL Cholesterol 28 L Lipase 150 Vitamin B12 Thyroxine (T4) Total T3 TSH 3rd Generation Urine Color Urine Clarity Urine pH Ur Specific [place] Urine Protein Urine Glucose (UA) Urine Ketones Urine Blood Urine Nitrate Urine Bilirubin Urine Urobilinogen Ur Leukocyte Esterase Urine RBC (Auto) Ur Squamous Epith Cells Urine Bacteria Urine HCG, Qual Urine Opiates Screen Urine Methadone Screen Ur Barbiturates Screen Ur Phencyclidine Scrn Ur Amphetamines Screen U Benzodiazepines Scrn U Oth Cocaine Metabols U Cannabinoids Screen Blood Type A POSITIVE Antibody Screen Negative 07/23/18 07/23/18 07/24/18 21:39 21:39 06:11 WBC 11.7 H RBC 4.91 Hgb 12.4 Hct 37.9 MCV 77.3 L MCH 25.2 L MCHC 32.6 L RDW 16.4 H Plt Count 216 MPV 8.4 Neut % (Auto) Lymph % (Auto) Johnston % (Auto) Eos % (Auto) Baso % (Auto) Neut # (Auto) Lymph # (Auto) Johnston # (Auto) Eos # (Auto) Baso # (Auto) Neutrophils % (Manual) Lymphocytes % (Manual) Monocytes % (Manual) Platelet Estimate Large Platelets Hypochromasia (manual) Poikilocytosis (manual Anisocytosis (manual) Target Cells Ovalocytes ESR 23 H PT INR APTT Sodium Potassium Chloride Carbon Dioxide Anion Gap BUN Creatinine Est GFR ( Amer) Est GFR (Non-Af Amer) POC Glucose (mg/dL) Random Glucose Hemoglobin A1c Calcium Phosphorus Magnesium Total Bilirubin AST ALT Alkaline Phosphatase Total Creatine Kinase CK-MB (Mass) Troponin I C-React Prot High Sens NT-Pro-B Natriuret Pep Total Protein Albumin Globulin Albumin/Globulin Ratio Triglycerides Cholesterol LDL Cholesterol Direct HDL Cholesterol Lipase Vitamin B12 Thyroxine (T4) Total T3 TSH 3rd Generation Urine Color Uyen Urine Clarity Hazy Urine pH 6.0 Ur Specific [place] 1.030 Urine Protein 100 Urine Glucose (UA) Negative Urine Ketones Negative Urine Blood Trace Urine Nitrate Negative Urine Bilirubin Small Urine Urobilinogen 0.2 Ur Leukocyte Esterase Negative Urine RBC (Auto) 5 H Ur Squamous Epith Cells 4 Urine Bacteria Occ H Urine HCG, Qual Negative Urine Opiates Screen Negative Urine Methadone Screen Negative Ur Barbiturates Screen Negative Ur Phencyclidine Scrn Negative Ur Amphetamines Screen Negative U Benzodiazepines Scrn Negative U Oth Cocaine Metabols Negative U Cannabinoids Screen Negative Blood Type Antibody Screen 07/24/18 07/24/18 07/24/18 06:11 06:11 13:29 WBC 12.9 H RBC 4.76 Hgb 11.7 Hct 36.5 MCV 76.6 L MCH 24.5 L MCHC 32.0 L RDW 15.8 H Plt Count 195 MPV 7.9 Neut % (Auto) 91.5 H Lymph % (Auto) 5.1 L Johnston % (Auto) 2.9 Eos % (Auto) 0.0 Baso % (Auto) 0.5 Neut # (Auto) 11.8 H Lymph # (Auto) 0.7 L Johnston # (Auto) 0.4 Eos # (Auto) 0.0 Baso # (Auto) 0.1 Neutrophils % (Manual) 87 H Lymphocytes % (Manual) 10 L Monocytes % (Manual) 3 Platelet Estimate Normal Large Platelets Present Hypochromasia (manual) Slight Poikilocytosis (manual Slight Anisocytosis (manual) Slight Target Cells Slight Ovalocytes Slight ESR PT INR APTT Sodium 142 Potassium 5.8 H Chloride 108 H Carbon Dioxide 16 L Anion Gap 23 H BUN 6 L Creatinine 0.8 Est GFR ( Amer) > 60 Est GFR (Non-Af Amer) > 60 POC Glucose (mg/dL) Random Glucose 144 H Hemoglobin A1c Calcium 9.4 Phosphorus 2.8 Magnesium 1.7 Total Bilirubin 0.5 AST 31 ALT 31 Alkaline Phosphatase 58 Total Creatine Kinase 213 H CK-MB (Mass) 1.54 Troponin I < 0.0120 C-React Prot High Sens 5.92 H NT-Pro-B Natriuret Pep 264 Total Protein 7.7 Albumin 4.1 Globulin 3.6 Albumin/Globulin Ratio 1.1 Triglycerides 55 D Cholesterol 194 LDL Cholesterol Direct 162 H HDL Cholesterol 34 Lipase Vitamin B12 537 Thyroxine (T4) 11.8 H Total T3 1.75 TSH 3rd Generation 0.41 L Urine Color Urine Clarity Urine pH Ur Specific [place] Urine Protein Urine Glucose (UA) Urine Ketones Urine Blood Urine Nitrate Urine Bilirubin Urine Urobilinogen Ur Leukocyte Esterase Urine RBC (Auto) Ur Squamous Epith Cells Urine Bacteria Urine HCG, Qual Urine Opiates Screen Urine Methadone Screen Ur Barbiturates Screen Ur Phencyclidine Scrn Ur Amphetamines Screen U Benzodiazepines Scrn U Oth Cocaine Metabols U Cannabinoids Screen Blood Type Antibody Screen 07/24/18 13:29 WBC RBC Hgb Hct MCV MCH MCHC RDW Plt Count MPV Neut % (Auto) Lymph % (Auto) Johnston % (Auto) Eos % (Auto) Baso % (Auto) Neut # (Auto) Lymph # (Auto) Johnston # (Auto) Eos # (Auto) Baso # (Auto) Neutrophils % (Manual) Lymphocytes % (Manual) Monocytes % (Manual) Platelet Estimate Large Platelets Hypochromasia (manual) Poikilocytosis (manual Anisocytosis (manual) Target Cells Ovalocytes ESR PT INR APTT Sodium 143 Potassium 4.2 Chloride 111 H Carbon Dioxide 20 L Anion Gap 17 BUN 5 L Creatinine 0.7 Est GFR ( Amer) > 60 Est GFR (Non-Af Amer) > 60 POC Glucose (mg/dL) Random Glucose 123 H Hemoglobin A1c Calcium 8.7 Phosphorus 3.4 Magnesium 1.8 Total Bilirubin 0.3 AST 24 ALT 31 Alkaline Phosphatase 52 Total Creatine Kinase CK-MB (Mass) Troponin I C-React Prot High Sens NT-Pro-B Natriuret Pep Total Protein 7.1 Albumin 3.7 Globulin 3.4 Albumin/Globulin Ratio 1.1 Triglycerides Cholesterol LDL Cholesterol Direct HDL Cholesterol Lipase Vitamin B12 Thyroxine (T4) Total T3 TSH 3rd Generation Urine Color Urine Clarity Urine pH Ur Specific [place] Urine Protein Urine Glucose (UA) Urine Ketones Urine Blood Urine Nitrate Urine Bilirubin Urine Urobilinogen Ur Leukocyte Esterase Urine RBC (Auto) Ur Squamous Epith Cells Urine Bacteria Urine HCG, Qual Urine Opiates Screen Urine Methadone Screen Ur Barbiturates Screen Ur Phencyclidine Scrn Ur Amphetamines Screen U Benzodiazepines Scrn U Oth Cocaine Metabols U Cannabinoids Screen Blood Type Antibody Screen EKG/Cardiology Studies: Cardiology / EKG Studies 07/23/18 20:05 EKG [ELECTROCARDIOGRAM] Stat Comment: Mode Of Transportation: BED Reason For Exam: cp 07/23/18 21:04 ELECTROCARDIOGRAM Stat Comment: Mode Of Transportation: BED Reason For Exam: code stroke 07/24/18 00:04 EKG [ELECTROCARDIOGRAM] Stat Comment: Mode Of Transportation: Reason For Exam: afib Critical Care Progress Note - Nutrition Nutrition: Nutrition Category Date Time Status NPO Diet [DIET] Diets 07/24/18 Breakfast Active Attending/Attestation - Attestation I have personally seen and examined this patient.: Yes I have fully participated in the care of the patient.: Yes I have reviewed all pertinent clinical information: Yes Notes (Text): 07/24/18 16:10 Today: July The Patient was seen and examined at the bedside, Medical records reviewed, and management issues were discussed and formulated with the house staff. I have reviewed all the relevant clinical, laboratory, hemodynamic, radiographic data and medications Events reviewed Pain issues, skin care, head of the bed elevation, glycemic control were addressed. Agree with above resident's assessment and treatment plans of care as transcribed in Dr. Hess's note.
--- NOTE | 2018-07-24 12:14 | CP.PCM.PN ---
Subjective - Date & Time of Evaluation Date of Evaluation: 07/24/18 Time of Evaluation: 12:13 - Subjective Subjective: full consult dicated agree with transfer [facility] to a tertiary [facility] care facility Objective - Vital Signs/Intake and Output Vital Signs (last 24 hours): Temp Pulse Resp BP Pulse Ox 98.4 F 81 28 H 111/77 94 L 07/24/18 08:00 07/24/18 09:20 07/24/18 09:20 07/24/18 08:40 07/24/18 09:20 Intake and Output: 07/24/18 07/24/18 06:59 18:59 Intake Total 760 265 Output Total 320 90 Balance 440 175 - Medications Medications: Current Medications Heparin Sodium (Porcine) (Heparin) 4,320 units IVP ONCE ONE Stop: 07/24/18 12:13 Heparin Sodium/Sodium Chloride (Heparin 42831 Units/250ml 1/2 Normal Saline) 25,000 units in 250 mls @ 8.712 mls/hr IV .Q24H PRN; Protocol PRN Reason: ADJUST RATE PER PROTOCOL Influenza Virus Vaccine (Fluzone Quad [id number]) 60 mcg IM .ONCE ONE Stop: 07/27/18 11:47 Pantoprazole Sodium (Protonix Inj) 40 mg IVP DAILY SANYA Last Admin: 07/24/18 11:52 Dose: 40 mg Pneumococcal Polyvalent Vaccine (Prevnar 13) 0.5 ml IM .ONCE ONE Stop: 07/27/18 11:47 - Labs Labs: 07/24/18 06:11 07/24/18 06:11 PT 11.8 SECONDS (9.7-12.2) 07/23/18 21:12 INR 1.1 07/23/18 21:12 APTT 24 SECONDS (21-34) 07/23/18 21:12
[2018-07-24 12:18] VITALS: BP 117/80; PULSE 134; RESP 26; O2SAT 100
[2018-07-24 12:20] VITALS: TEMP 98.1
--- NOTE | 2018-07-24 12:26 | CT ---
Date of service: 07/24/2018 PROCEDURE: CT Angiography of the Brain. HISTORY: hemorrhagic stroke right cerebellar bleed COMPARISON: None available. TECHNIQUE: CT angiography of the intracranial arteries was performed. Coronal and sagittal maximum intensity projection reformated images were generated. Delayed images were also acquired following CT angiogram. Contrast dose: Visipaque 320, 100 cc. Radiation dose: Total exam DLP = 728.9 mGy-cm. This CT exam was performed using one or more of the following dose reduction techniques: Automated exposure control, adjustment of the mA and/or kV according to patient size, and/or use of iterative reconstruction technique. FINDINGS: CT venogram: CT venography demonstrates enhancement of the superior sagittal sinus from the mid vertex level posteriorly down to at least the torcular herophili level (see series 5 images 40-111). Lack of enhancement at the internal cerebral veins, vein of Cheng and straight sinus suggest thrombosis here as well and is not excluded the right transverse sinus which is not clearly identified on delayed imaging. Enhancement is apparent at the bilateral sigmoid sinuses and the proximal internal jugular veins bilaterally. INTERNAL CEREBRAL ARTERIES: Unremarkable. The skull base, petrous, cavernous and supraclinoid segments are bilaterally widely patent. ANTERIOR CEREBRAL ARTERIES: Unremarkable. A1 and A2 segments are widely patent. Smaller distal branches unremarkable, as visualized. MIDDLE CEREBRAL ARTERIES: Unremarkable. M1 and M2 segments are widely patent. Perisylvian branches grossly symmetric. POSTERIOR CIRCULATION: Basilar Artery: Unremarkable. Distal Vertebral Arteries: Unremarkable. Right dominant vertebrobasilar circulation Posterior Cerebral Arteries: Unremarkable. Posterior Inferior Cerebellar Arteries: Unremarkable. NECK CTA: Common Carotid arteries: The bilateral common carotid appear widely patent from their origins to their bifurcations with no significant stenosis appreciated. No evidence to suggest common carotid artery dissection. Internal Carotid arteries: No significant stenosis is appreciated throughout the cervical internal carotid artery segments bilaterally and there is no evidence of dissection either. External Carotid arteries: Appear unremarkable bilaterally. Vertebral arteries: The bilateral vertebral arteries appear normal in caliber from their origins to their distal cervical segments. No significant stenosis or definite pattern of dissection. ANEURYSM/ VASCULAR MALFORMATIONS: None. OTHER FINDINGS: Note, incidental imaging of the brain is not optimal due to CT angiography technique, however, 4th ventricle remains small but patent. It is difficult to exclude further reduction in bilateral ambient and perimesencephalic cisterns at this time. No further dilatation of the bilateral lateral ventricles and 3rd ventricle is appreciated compared to 07/[address] No prominent increase in hemorrhagic infarction at the cerebellum is appreciable at this time. IMPRESSION: 1. 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 Likely thrombosis of bilateral internal cerebral veins, vein of Cheng and straight sinus and possibly right transverse sinus. 2. Unremarkable CT angiogram of the brain and neck. No definite aneurysm or arteriovascular malformation identified. 3. Potential further encroachment of the brainstem by cerebellum in the interval as best can be determined by CTA technique related imaging. No prominent increase in hemorrhagic infarction at the cerebellum is appreciable at this time. 4. Noncontrast MRI with pre and post-contrast MR venography is recommended when feasible. Findings discussed with Dr. Erickson with written down and read back verification 07/24/2018 11:56 p.m..
[2018-07-24 13:39] LABS: BASO # 0.1 K/uL (0.0-0.2); BASO % 0.5 % (0.0-2.0); HEMOGLOBIN 11.7 g/dL (11.0-16.0); LYMPH # 0.7 K/uL (1.0-4.3); LYMPH % 5.1 % (20.0-40.0); MEAN CELL VOLUME 76.6 fL (81.0-99.0); MEAN CORPUSCULAR HEMOGLOBIN 24.5 pg (27.0-31.0); MEAN PLATELET VOLUME 7.9 fL (7.2-11.7); MONO # 0.4 K/uL (0.0-0.8); MONO % 2.9 % (0.0-10.0); NEUT # 11.8 K/uL (1.8-7.0); NEUT % 91.5 % (50.0-75.0); PLATELET COUNT 195 K/uL (130-400); RBC 4.76 Mil/uL (3.80-5.20); RED CELL DISTRIBUTION WIDTH 15.8 % (11.5-14.5); WHITE BLOOD COUNT 12.9 K/uL (4.8-10.8)
[2018-07-24 14:00] LABS: ANISOCYTOSIS SLIGHT; HYPOCHROMIC SLIGHT; LYMPHOCYTE 10 % (20-40); MONOCYTE 3 % (0-10); NEUTROPHIL 87 % (50-75); PLATELET ESTIMATE NORMAL (NORMAL); POIKILOCYTOSIS SLIGHT; TOTAL CELLS COUNTED 100
[2018-07-24 14:01] LABS: OVALOCYTES SLIGHT; TARGET CELLS SLIGHT
[2018-07-24 14:02] LABS: LARGE PLATELETS PRESENT
[2018-07-24 14:26] LABS: ALB/GLOB RATIO 1.1 (1.0-2.1); ALBUMIN 3.7 g/dL (3.5-5.0); ALT/SGPT 31 U/L (9-52); AST/SGOT 24 U/L (14-36); BLOOD UREA NITROGEN 5 mg/dL (7-17); CALCIUM 8.7 mg/dl (8.6-10.4); GFR NON-AFRICAN AMERICAN > 60
[2018-07-24] MEDS ORDERED: Sodium Chloride 0.9% 1,000 ML IV ONE (14:49)
--- NOTE | 2018-07-24 21:18 | CARD ---
APPROVED REPORT Date of service: 07/24/2018 EXAM: Two-dimensional and M-mode echocardiogram with Doppler and color Doppler with saline bubble. Other Information Quality : GoodRhythm : Atrial Fibrillation INDICATION CVA/TIA Echo Enhancing Agent Indication: Rule Out Septal Defect Agent/Amount Used: Agitated Saline 2D DIMENSIONS IVSd0.9 (0.7-1.1cm)Aortic Root (2D)3.1 (2.0-3.7cm) LVDd4.2 (3.9-5.9cm)PWd0.8 (0.7-1.1cm) LA Nuehds92 (18-58mL)LVDs3.1 (2.5-4.0cm) FS (%) 26.6 %LVEF (%)52.4 (>50%) LVEF (Landaverde's)65.62 % M-Mode DIMENSIONS RVDd2.62 (2.1-3.2cm)Left Atrium (MM)3.06 (2.5-4.0cm) IVSd0.73 (0.7-1.1cm)Aortic Root2.88 (2.2-3.7cm) LVDd4.57 (4.0-5.6cm)Aortic Cusp Exc.1.94 (1.5-2.0cm) PWd0.56 (0.7-1.1cm)FS (%) 31 % LVDs3.13 (2.0-3.8cm)LVEF (%)59 (>50%) Mitral Valve MV E Jhnidxwi876.1cm/sE/A ratio0.0 TDI Lateral E' Peak V4.35cm/sMedial E' Peak V2.35cm/sE/Lateral E'26.2 E/Medial E'48.6 Tricuspid Valve TR Peak [id number]/sTR Peak Gr.[id number] LEFT VENTRICLE The left ventricle is normal size. There is normal left ventricular wall thickness. The left ventricular function is normal. The left ventricular ejection fraction is within the normal range. There is normal LV segmental wall motion. Transmitral Doppler flow pattern is abnormal. AORTIC VALVE The aortic valve is normal in structure. MITRAL VALVE Mitral regurgitation is mild. TRICUSPID VALVE There is mild tricuspid regurgitation. <Conclusion> Normal LV systolic function. Normal chamber size. Trace to mild MR. Mild TR
--- NOTE | 2018-07-25 10:39 | CON ---
DATE: 07/24/2018 HISTORY OF PRESENT ILLNESS: This is a 42-year-old woman, who was admitted to the ER last night. She had altered mental status. She has had complaints of headache and has become drowsy as of yesterday. CT of the head done last night demonstrated bilateral cerebellar hemorrhages in a waspy-type pattern with appearance of the sagittal sinus and the deep venous structures appearing thrombosed. She had a repeat CAT scan this morning showing worsening mass effect from the hemorrhage with increasing hemorrhage size. PHYSICAL EXAMINATION: She was awake, lethargic, following commands, verbal, good motor strength. Cranial nerves appeared intact. ASSESSMENT AND PLAN: I had lengthy discussions with Dr. Erickson and the radiologist and she has had a CTA, which demonstrates clearly that she has venous obstruction. She will benefit from posterior fossa decompression; however, in my opinion, the postoperative care required for this type of patient given all the circumstances are such that she will be best cared for in an institution where there was a dedicated neurologist available. Dr. Erickson agrees. He spoke to Dr. Craft who was going to take over her care at another facility. Eros Delgadillo MD
--- NOTE | 2018-07-25 12:17 | VASCLAB ---
Date of service: 07/24/2018 PROCEDURE: Lower Extremity Venous Duplex Exam. HISTORY: Leg swelling r/o DVT PRIORS: None. TECHNIQUE: Bilateral common femoral, femoral, popliteal and posterior tibial, peroneal and great saphenous veins were evaluated. Flow was assessed with color Doppler, compressibility, assessment of phasic flow and augmentation response. Report prepared by BRYANNA Lemon FINDINGS: RIGHT: 1. Common Femoral Vein: 1.1. Compressibility - Fully compressible: Thrombus - None : Flow - Phasic: Augmentation -Normal: Reflux - None. 2. Femoral Vein: 2.1. Compressibility - Fully compressible: Thrombus - None : Flow - Phasic: Augmentation -Normal: Reflux - None. 3. Popliteal Vein: 3.1. Compressibility - Fully compressible: Thrombus - None : Flow - Phasic: Augmentation -Normal: Reflux - None. 4. Posterior Tibial Vein: 4.1. Compressibility - Fully compressible: Thrombus - None: Flow - Phasic: Augmentation -Normal: Reflux - None. 5. Peroneal Vein: 5.1. Compressibility - Fully compressible: Thrombus - None: Flow - Phasic: Augmentation -Normal: Reflux - None. 6. Great Saphenous Vein: 6.1. Compressibility - Fully compressible: Thrombus - None: Flow - Phasic: Augmentation - Normal: Reflux - None. LEFT: 1. Common Femoral Vein: 1.1. Compressibility - Fully compressible: Thrombus - None: Flow - Phasic: Augmentation -Normal: Reflux - None. 2. Femoral Vein: 2.1. Compressibility - Fully compressible: Thrombus - None: Flow - Phasic: Augmentation -Normal: Reflux - None. 3. Popliteal Vein: 3.1. Compressibility - Fully compressible: Thrombus - None : Flow - Phasic: Augmentation -Normal: Reflux - None. 4. Posterior Tibial Vein: 4.1. Compressibility - Fully compressible: Thrombus - None: Flow - Phasic: Augmentation -Normal: Reflux - None. 5. Peroneal Vein: 5.1. Compressibility - Fully compressible: Thrombus - None: Flow - Phasic: Augmentation -Normal: Reflux - None. 6. Great Saphenous Vein: 6.1. Compressibility - Fully compressible: Thrombus - None: Flow - Phasic: Augmentation - Normal: Reflux - None. OTHER FINDINGS: Right: None significant. Left: None significant. IMPRESSION: Right: No evidence of deep or superficial vein thrombosis of the right lower extremity. Normal valve function noted of the right side. Left: No evidence of deep or superficial vein thrombosis of the left lower extremity. Normal valve function noted of the left side.
--- NOTE | 2018-07-25 17:55 | CARD ---
APPROVED REPORT Date of service: 07/24/2018 EKG Measurement Heart [id number] <Conclusion> Atrial fibrillation with premature ventricular or aberrantly conducted complexes Abnormal ECG
[2018-07-27] MEDS ORDERED: Influenza Vaccine 60 MCG/0.5 ML SYR (3 yr & up) IM ONE (11:46)
[2018-07-27] MEDS ORDERED: Pneumoc 13 Val Conjugate Vaccine Inj IM ONE (11:46)
== END 2018-07-24 15:15 | disposition short-term general hospital (02) | DRG 66 ==
LOC: C.ER 21:01 → C.9I 21:37
PROVIDERS: ADMIT Internal Medicine Nephrology; ATTEND Internal Medicine Nephrology
PROC: 02HV33Z Insertion of Infusion Device into Superior Vena Cava, Percutaneous Approach (ICD-10-PCS; principal; 2018-07-24)
DX: I61.4 Nontraumatic intracerebral hemorrhage in cerebellum (principal); E87.6 Hypokalemia; I48.91 Unspecified atrial fibrillation